=== PATIENT | male | born 1945 | race Caucasian/White ===

== ENCOUNTER → 2017-10-16 | Outpatient (CLI) | payer OTHER ==
[~2017-10-16] MED LIST: ARICEPT 5 MG TAB5 MG PO; ASPIR 8181 MG PO; ASPIRIN81 M2 PO; ATORVASTATIN CA40 MG PO; AVAPRO 150 MG150 M1 PO; B-12500 MCG PO; CARAFATE1 GM PO; COREG3.125 MG PO; IBUPROFEN 200200 M1 PO; KEPPRA 500 MG500 M1 PO; NORCO 7.5-3251 EACH PO; TRAMADOL 50 MG50 MG PO
--- NOTE | 2017-10-17 08:24 | PAINCON ---
[facility] [address] [place] [address] PAIN MANAGEMENT CONSULTATION Name: VAMSI RIVAS Room: [facility] SUNITA Mohr#: [id number] Admission: 10/16/17 Attend Phys: Osei Vargas Discharge: Date of : 43 Report #: [id number] THIS REPORT FOR: //name// CC: Damien Bell DATE OF SERVICE: 10/16/2017 The patient is a 72-year-old gentleman, prior seen in pain clinic just shy of a year ago in 11/2016, given epidural injection with overall improvement of baseline pain. Returns to pain clinic today, we had a prolonged visit, greater than 30 minutes were spent reviewing interval history, discussing therapeutic issues and concerns. The patient notes the prior epidural injection in November had been quite helpful. He was somewhat lost to follow up. Pain began to recur this past August. Unfortunately, there was confusion at patient's referring physician office, they thought that I was out of network. The patient would have preferred to come to me, he was referred to [facility]. Saw Dr. Balbri Pan, had an epidural injection early August, which he felt afforded really no ongoing relief. They were left frustrated with that encounter. He presents to the pain clinic today with ongoing pain he rates at 8 on VAS. Notes pain is in the low back, radiating to the bilateral legs. Really does not have radicular component of pain at this time. Denies myelopathic symptoms, no bowel or bladder continence changes. Notes pain is exacerbated with standing, walking and weightbearing as well as any axial loading. PHYSICAL EXAMINATION: Shows a 72-year-old gentleman appearing somewhat younger than stated age, 6 feet 3 inches, 244 pounds, BMI is 30 kilograms per meter squared. Blood pressure 146/77, pulse 74, respirations 16. Alert and oriented to person, place and time, judged to be a reasonable historian, moderately hard of hearing, but he wears bilateral hearing aids. Rises from the chair easily. Has diffuse tenderness across the low back. Gait is tandem at this time. Lower extremity strength is generally preserved. Very tender over the lumbar facets bilaterally, pain is exacerbated with rotation and side bending. Cristopher test is negative. We reviewed MRI from 11/27/2016. 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 More recent MRI from 08/21/2017, again notes multilevel [place] [address] PAIN MANAGEMENT CONSULTATION Name: HARSHMARIELLEVAMSI A Room: [facility]#: [id number] Admission: 10/16/17 Attend Phys: Osei Vargas Discharge: Date of : 43 Report #: [id number] lumbar spine without thecal sac or nerve root compression. No high grade spinal stenosis or neural foraminal stenosis noted. ASSESSMENT: Symptomatic lumbar spondylosis by clinical exam and history, a prior history of lumbar radicular pain, which he was treated for approximately a year ago. RECOMMENDATION: Given primarily L4-L5 and L5-S1 facet mediated pain by clinical exam and history correlated with provocative testing and MRI findings, we will seek authorization for bilateral L4-L5 and L5-S1 facet joint injection under fluoroscopy. Continue ibuprofen OTC. I have taken the liberty of writing for hydrocodone 7.5/325 one tablet 2-3 times a day, limit 75 tablets. The patient was discharged in good and stable condition after prolonged visit, will seek authorization for bilateral L4-L5 and L5-S1 facet joint injections under fluoroscopy at earliest possible date. Thank you for allowing me to participate in the patient's care. I will keep you abreast of his progress. <ELECTRONICALLY SIGNED> By: Ozzy Bell DO 10/17/17 0824 1451 1945Ozzy Bell DO /nt
== END ==
LOC: M.PC 01:24
DX: M54.16 Radiculopathy, lumbar region (principal)

== ENCOUNTER → 2017-10-23 | Outpatient (CLI) | payer OTHER ==
--- NOTE | 2017-10-28 07:21 | PAINCON ---
[address] [address] PAIN MANAGEMENT CONSULTATION Name: VAMSI RIVAS Room: [facility] Fani#: [id number] Admission: 10/23/17 Attend Phys: Osei Vargas Discharge: Date of : 43 Report #: [id number] THIS REPORT FOR: //name// CC: Damien Bell The patient is a 72-year-old gentleman, prior seen in the pain clinic on 10/16/2017, diagnosed with symptomatic lumbar spondylosis. We sought authorization for bilateral L4-L5 and L5-S1 facet joint injections. The patient returns to the pain clinic today for said procedure. He notes pain continues to be problematic, rating his pain a 5 on a VAS. Physical exam is otherwise unchanged. ASSESSMENT: Symptomatic lumbar spondylosis by clinical exam and history. PROCEDURE: Bilateral L4-L5 and L5-S1 facet joint injections under fluoroscopy. PROCEDURE NOTE: After written informed consent was obtained, the patient was taken to the fluoroscopy suite and placed in prone position. After sterile prep and drape, skin wheal was raised. A 22-gauge stylet needle was placed to contact the posterior aspect of the left L4-L5 and L5-S1 facet joints. AP and lateral projections showed good needle placement. Attention was then directed at the right side, again two 22-gauge stylet needles placed to contact the posterior aspect of the right L4-L5 and L5-S1 facet joints. Again, AP and lateral projections showed good needle placement. A 20 mg triamcinolone plus 1 mL of 0.5% preservative-free bupivacaine was injected at all 4 needles. All 4 needles were then removed. The area was cleansed and Band-Aids applied. The patient monitored for an appropriate period of time, told to monitor pain score over the next several hours. Follow up in 4 weeks for reevaluation, consideration for a medial branch dorsal rami diagnostic blocks and consideration of RFL if indicated. Fluoroscopy time was under 20 seconds. Discharged in good and stable condition. <ELECTRONICALLY SIGNED> By: Ozzy Bell DO 10/28/17 0721 1447 2229Ozzy Bell DO /nt
== END | disposition home or self-care (01) ==
LOC: M.PC 01:40
DX: M47.816 Spondylosis without myelopathy or radiculopathy, lumbar region (principal)

== ENCOUNTER → 2017-11-20 | Outpatient (CLI) | payer OTHER ==
--- NOTE | 2017-11-21 10:21 | PAINCON ---
[address] [address] PAIN MANAGEMENT CONSULTATION Name: VAMSI RIVAS Room: [facility] Fani#: [id number] Admission: 11/20/17 Attend Phys: Osei Vargas Discharge: Date of : 43 Report #: [id number] THIS REPORT FOR: //name// CC: Damien Bell DATE OF SERVICE: 11/20/2017 The patient is a 72-year-old gentleman, prior seen in the pain clinic 10/23/2017, diagnosed with symptomatic lumbar spondylosis and lumbosacral spondylosis without myelopathy or radiculopathy (M47.816, M47.817). The patient was given bilateral L4-L5, L5-S1 facet joint injections at last visit. The patient noted excellent, greater than 60% relief for several days with pain recurred to baseline. The patient presents to pain clinic today noting pain as a 3-4 on a VAS, gets up to 7 with activity. PHYSICAL EXAMINATION: Otherwise shows alert, oriented 72-year-old gentleman, 6 feet 3 inches. BMI is approximately 24 kilograms per meter squared. Vital signs are stable. Rises from chair using the armrest. Gait is antalgic. Lower extremity strength is preserved, but ongoing pain in the bilateral low back exacerbated with side bending and rotation. I reviewed the patient's diagnostic findings including the MRI from 08/21/2017 noting multilevel lumbar spondylosis without significant nerve root compression. ASSESSMENT: 1. Symptomatic lumbar spondylosis without myelopathy or radiculopathy. 2. Lumbosacral spondylosis without myelopathy or radiculopathy. RECOMMENDATIONS: With good relief, yet transient following bilateral facet joint injections at L4-L5 and L5-S1, we will seek authorization for medial branch dorsal rami diagnostic blocks innervating these joints (L3, L4 and L5 bilateral medial branch dorsal rami). If this affords transient relief, we will plan on moving forward with radiofrequency neurolysis. Discharged in good and stable condition. <ELECTRONICALLY SIGNED> By: Ozzy Bell DO 11/21/17 1021 1335 1843Ozzy Bell DO /nt
== END ==
LOC: M.PC 03:39
DX: M47.817 Spondylosis without myelopathy or radiculopathy, lumbosacral region (principal)

== ENCOUNTER → 2017-11-27 | Outpatient (CLI) | payer OTHER ==
--- NOTE | 2017-12-04 07:59 | PAINCON ---
[address] [address] PAIN MANAGEMENT CONSULTATION Name: VAMSI RIVAS Room: [facility] SUNITA Mohr#: [id number] Admission: 11/27/17 Attend Phys: Osei Vargas Discharge: Date of : 43 Report #: [id number] THIS REPORT FOR: //name// CC: Damien Bell The patient is a very pleasant 72-year-old gentleman being treated for symptomatic lumbar spondylosis without myelopathy or radiculopathy (M47.816, M47.817). He had lumbar facet joint injections, bilateral on 10/23/2017 in L4-L5 and L5-S1 with excellent yet transient improvement of pain. He had near 100% relief for the duration of the local anesthetic. He presents to the pain clinic today for medial branch dorsal rami diagnostic block. If he gets good relief with this, we will plan on moving forward with radiofrequency neurolysis. We will do bilateral blocks today; however, the patient understands and will move forward with RFL, only one side at a time. He tells me his left side seems to be the worst. ASSESSMENT: Symptomatic lumbar spondylosis without myelopathy or radiculopathy. PROCEDURE NOTE: After written informed consent was obtained, the patient was taken to the fluoroscopy suite, placed in prone position. After sterile prep and drape, skin wheal was raised. A 22-gauge stylet needle was placed to contact the left sacral alar notch, the left L5 superior articular process and the left L4 superior articular process. AP and lateral projections showed good needle placement adjacent to the L3, L4 and L5 medial branch dorsal rami. A 1 mL of 50:50 mix of 0.5% preservative-free bupivacaine plus 1.5% preservative-free Xylocaine was injected at each site. All 3 needles removed. Apple was redirected to the contralateral, i.e., right side. Procedure was repeated. All 6 needles removed. The area was cleansed, Band-Aids applied. Fluoroscopy time was 24 seconds. The patient monitored for an appropriate period of time in the recovery room, noted to have dramatic improvement of baseline pain, in fact, noted pain had decreased 90% (from a 01/30 to /). We will plan on moving forward with RFL at next visit. Discharged in good and stable condition. <ELECTRONICALLY SIGNED> By: Ozzy Bell DO 12/04/17 0759 1339 2040Ozzy Bell DO /nt
== END | disposition home or self-care (01) ==
LOC: M.PC 04:56
DX: M47.816 Spondylosis without myelopathy or radiculopathy, lumbar region (principal); G89.29 Other chronic pain; Z79.82 Long term (current) use of aspirin; Z79.899 Other long term (current) drug therapy

== ENCOUNTER → 2017-12-04 | Outpatient (CLI) | payer OTHER ==
--- NOTE | 2017-12-05 09:41 | PAINCON ---
[address] [address] PAIN MANAGEMENT CONSULTATION Name: VAMSI RIVAS [id number] Admission: 12/04/17 Attend Phys: Osei Vargas Discharge: Date of : 43 Report #: [id number] THIS REPORT FOR: //name// CC: Damien Bell The patient is a 72-year-old gentleman, prior seen in the pain clinic on 11/27/2017. We did medial branch dorsal rami diagnostic blocks at L3, L4 and L5. The patient notes that he had good relief, yet transient. He presents to pain clinic today for radiofrequency neurolysis. He thinks the left side may be worse. We have elected to start on this side today. Today, he also tells me he has had ongoing pain in bilateral knees. Notes, Orthopedics have told him that he needs total knee arthroplasties. He is loathe to move forward with surgery unless he is completely unable to ambulate. PHYSICAL EXAMINATION: Does show pleasant 72-year-old gentleman, BMI is 29.9 kilograms per meter squared. Blood pressure and pulse are wnl, respirations 16. Diffuse tenderness across the low back. Pain is exacerbated with rotating and sidebending. Modestly antalgic gait. No ballottable edema in the knees. The ligaments are intact. He does have subjective ongoing pain. ASSESSMENT: 1. Symptomatic degenerative joint disease, bilateral knees. 2. Lumbar and lumbosacral spondylosis without myelopathy or radiculopathy (M47.816, M47.817). RECOMMENDATIONS: 1. We will get x-rays of bilateral knees. We talked briefly about moving forward with Synvisc injection (hyaline G-F 20), if ongoing pain continues and he has diagnosable DJD. With no ballottable edema, I do think it is prudent to move forward with steroid injection in the knee. 2. Move forward with radiofrequency neurolysis left side L3, L4 and L5. Follow up in 2 weeks for consideration for contralateral RFL. PROCEDURE NOTE: After written informed consent was obtained, the patient was taken to the fluoroscopy suite and placed in the prone position. After sterile prep and drape, skin wheal was raised and three 10 mm RFK needles were placed to contact the left sacral alar notch, second needle was placed in the superior aspect of the left L5 superior articular process adjacent to the L4 medial branch dorsal rami, third needle was placed in the superior aspect of the L4 superior articular process adjacent to the L3 medial branch dorsal rami. AP and lateral projections showed good needle placements. Initial impedance, sensory and motor testing was accomplished. Numbers are on the chart. Each needle was then heated to 80 degrees centigrade for 90 seconds. A 30 mg of triamcinolone plus 1 mL of 0.5% preservative-free bupivacaine was injected at all 3 sites. Fluoroscopy time was under 30 seconds. All needles removed[place] [address] PAIN MANAGEMENT CONSULTATION Name: VAMSI RIVAS Room: [facility] Mohr#: [id number] Admission: 12/04/17 Attend Phys: Osei Vargas Discharge: Date of : 43 Report #: [id number] cleansed. Band-Aids were applied. The patient was allowed to ambulate to recovery room, monitored for an appropriate period of time, and discharged in good and stable condition. <ELECTRONICALLY SIGNED> By: Ozzy Bell DO 12/05/17 0941 1421 2033Ozzy Bell DO /nt
== END | disposition home or self-care (01) ==
LOC: M.RAD 01:49 → M.PC 01:49
DX: M47.816 Spondylosis without myelopathy or radiculopathy, lumbar region (principal); M47.817 Spondylosis without myelopathy or radiculopathy, lumbosacral region; M17.0 Bilateral primary osteoarthritis of knee; Z79.82 Long term (current) use of aspirin; Z79.899 Other long term (current) drug therapy

== ENCOUNTER → 2017-12-25 | Outpatient (CLI) | payer OTHER ==
--- NOTE | 2017-12-30 08:02 | PAINCON ---
[address] [address] PAIN MANAGEMENT CONSULTATION Name: VAMSI RIVAS Room: [facility] Fani#: [id number] Admission: 12/25/17 Attend Phys: Osei Vargas Discharge: Date of : 43 Report #: [id number] THIS REPORT FOR: //name// CC: Damien Bell DATE OF SERVICE: 12/25/2017 The patient is a 72-year-old gentleman who has been treated for axial back pain, lumbar and lumbosacral spondylosis, has DJD bilateral knees. We did RFL left L3, L4 and L5 on 12/04/2017, had some efficacy with this, but at that time he was complaining of ongoing bilateral knee pain. I ordered x-rays of bilateral knees, left and right knees show severe patellofemoral degenerative joint disease. We discussed Synvisc/hylan G-F 20 injections for cartilage supplementation. The patient wished to proceed. He notes the left knee was incrementally worse than the right. He has prior had right knee surgery. He wishes to proceed with a series of Synvisc injections, left knee. ASSESSMENT: Symptomatic degenerative joint disease, osteoarthritis, bilateral knees, left greater than right. PROCEDURE: Left knee Synvisc injection under fluoroscopy. DESCRIPTION OF PROCEDURE: After informed consent was obtained including risk of infection, the patient agreed. He was taken to the fluoroscopy suite and placed in supine position with a bolster on the left knee. Wide surgical prep and ape was accomplished. Skin with Xylocaine was raised from a superior medial approach. A 20-gauge Angiocath was inserted in the inferior lateral trajectory under the patella. Fluoroscopy showed needle tip in good position under the patella into the joint space proper. The needle was removed and 2 mL of Synvisc was injected through the Angiocath. Angiocath was removed. The area was cleansed, Band-Aids applied. The patient was told to keep the area clean and dry. Ice as needed for pain. Follow up in 1 week for Synvisc #2. <ELECTRONICALLY SIGNED> By: Ozzy Bell DO 12/30/17 0802 1409 1718Ozzy Bell DO /nt
== END | disposition home or self-care (01) ==
LOC: M.PC 01:24
DX: M17.0 Bilateral primary osteoarthritis of knee (principal); Z79.82 Long term (current) use of aspirin; Z79.899 Other long term (current) drug therapy; Z98.890 Other specified postprocedural states

== ENCOUNTER 2019-04-21 06:52 | Inpatient (IN) | payer OTHER ==
[2019-04-09 09:18] LABS: HEMATOCRIT 40.4 % (42.0-52.0); HEMOGLOBIN 14.1 gm/dL (14.0-18.0); MCH 29.4 pg (26.0-34.0); MCHC 34.9 g/dL (28.0-37.0); MCV 84.2 fL (80.0-100.0); MPV 7.8 fl. (7.2-11.1); RBC 4.8 mil/uL (4.50-6.00); RDW-CV 14.6 % (10.5-14.5); WBC 4.1 thou/uL (4.0-11.0)
[2019-04-09 09:22] LABS: URINE BILIRUBIN NEGATIVE (Negative); URINE BLOOD 1+ (Negative); URINE CLARITY CLEAR; URINE COLOR YELLOW; URINE GLUCOSE-RANDOM NEGATIVE (Negative); URINE KETONES NEGATIVE (Negative); URINE LEUKOCYTES-REFLEX NEGATIVE (Negative); URINE NITRITE-REFLEX NEGATIVE (Negative); URINE PROTEIN TRACE (Negative); URINE SPECIFIC GRAVITY >= 1.030 (1.005-1.030)
[2019-04-09 09:31] LABS: BACTERIA-REFLEX 1-9 Few /HPF (None Seen); CASTS None Seen /LPF (None Seen); CRYSTALS None Seen /LPF (None Seen); MUCUS >6 Heavy strn/LPF (None Seen); SQUAMOUS 4-10 Moderate /LPF (0-3); URINE RBC 3-10 Few /HPF (0-2); URINE WBC-REFLEX 0-5 Rare /HPF (0-5)
[2019-04-09 09:32] LABS: ALBUMIN 3.2 g/dL (3.4-5.0); CALCIUM 9.1 mg/dL (8.5-10.1); CREATININE 0.9 mg/dL (0.6-1.3); TOTAL BILIRUBIN 0.9 mg/dL (<0.1-1.0); TOTAL PROTEIN 7.1 g/dL (6.4-8.2)
[2019-04-09 09:43] LABS: PROTIME 10.6 Seconds (9.20-11.50)
--- NOTE | 2019-04-09 16:32 | EKG ---
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 04/09/19 1632 0935 0935 Axel Sosa MD, FAC /EPI
[~2019-04-21] VITALS: Ht 190.5 cm; Wt 109.8 kg
--- NOTE | ~2019-04-21 | OP ---
[facility] [address] [place] [address] OPERATIVE REPORT Name: VAMSI RIVAS Room: [address] IN .R.#: [id number] Admission: 04/21/19 Attend Phys: Osei Jacome Discharge: Date of : 43 Report #: [id number] THIS REPORT FOR: //name// CC: Damien Arreola DATE OF SERVICE: 04/21/2019 PREOPERATIVE DIAGNOSIS: Right knee osteoarthritis. POSTOPERATIVE DIAGNOSIS: Right knee osteoarthritis. PROCEDURE: Right total knee arthroplasty. SURGEON: Dariel Spencer II, DO. STAFF RESEARCH ASSOCIATE: MARIAJOSE Shields. ANESTHESIA: General endotracheal. ESTIMATED BLOOD LOSS: 50 mL. ANTIBIOTICS: Ancef preoperatively. DRAINS: Medium Hemovac. COMPLICATIONS: None. CONDITION: The patient was stable to recovery room. IMPLANTS: Listed in the operative record and progress note. BRIEF HISTORY: The patient was seen in the preoperative area. Preoperative H and P was performed. Site was marked. Questions were answered. Risks and benefits were discussed with the patient in detail about surgery. The patient wished to proceed assuming all risks. DESCRIPTION OF PROCEDURE: The patient was taken to the operative suite and placed supine on the operative table, given appropriate anesthesia. The patient had a well-padded tourniquet applied to the upper thigh, which was inflated to 300 mmHg after gravity exsanguination. The operative knee was sterilely prepped and draped. Surgery began by midline incision. This was carried down to the subcutaneous tissues. A medial parapatellar arthrotomy was performed and carried down to bone. The patella was then everted and excess soft tissues removed from around the femur. Femoral cutting block was then applied, checked [facility] [address] [place] [address] OPERATIVE REPORT Name: VAMSI RIVAS Room: [address] [place] [facility].#: [id number] Admission: 04/21/19 Attend Phys: Osei Jacome Discharge: Date of : 41 Report #: [id number] with a drop alex for rotational alignment, pinned in appropriate position and appropriate cuts were made. A 4-in-1 cutting block was then applied, checked for rotational alignment, pinned in appropriate position and appropriate cuts were made. The tibia was then exposed. Excess meniscus was removed. Retractor was placed on the collateral ligaments. The tibial guide block was then applied in appropriate position, checked with a drop alex for rotational alignment and slope and appropriate cut was made. Tibial bone was removed. The tibial base plate was then applied, checked for rotational alignment with the drop alex, pinned in appropriate position. Femur was then applied and box cut was reamed. This was then trialed with appropriate spacer, which showed excellent fit and fill with excellent stability of knee throughout all range of motion. Patella was then reamed in appropriate fashion and sized to appropriate size. Three peg holes were drilled, it was then trialed and showed excellent flexion, extension, excellent tracking of patella within the groove. These trials were removed. The tibia was punched in appropriate fashion. Bone ends were cleansed with Pulsavac irrigation and cement was mixed and applied to final implants. These were malleted into position and held the knee in extension and compressed to allow the cement to cure. After it cured, excess was removed utilizing a [place] and osteotome. Wound was then copiously irrigated and then final spacer was then malleted into position. The tourniquet was deflated. Hemostasis was obtained with electrocautery. Pain cocktail was injected. PRP gel was sprayed throughout internal aspects of the knee. Medium Hemovac drain was applied. The capsule was closed with #2 FiberWire and #1 Vicryl in [id number] fashion. Skin was closed with 2-0 Vicryl and running 3-0 Monocryl. Dermabond and sterile dressing applied. Crow wrap and PolarCare applied. The patient transported to recovery room in stable condition. Counts were correct throughout the procedure. By: [id number] Spencer II, DO /nt
[~2019-04-21 06:52] MED LIST changes: +ARICEPT10 M1 PO; +CALAN80 MG PO; +CRESTOR40 MG PO; +IBUPROFEN 600600 M1 PO; +PROTONIX40 M1 PO; +ULTRAM 50MG TAB50 MG PO
[2019-04-21 17:08] VITALS: BP 148/55
--- NOTE | 2019-04-21 18:33 | NUR ---
PT ARRIVED FROM PACU AT 1543. VITALS STABLE. DENIED PAIN MEDS. DENIED NAUSEA/VOMITING. DRESSING C/D/I. WILMER WRAP, TEDs, SCDs, HEMOVAC, POLAR PACK IN PLACE. IV PATENT. ON 3LO2 WITH CAPNO. FALL PRECAUITONS IN PLACE. CALL LIGHT WITHIN REACH. WILL CONTINUE TO MONITOR.
[2019-04-21 19:45] VITALS: BP 155/75
[2019-04-22] VITALS: BP 139/66
[2019-04-22 04:00] VITALS: BP 134/64
[2019-04-22 04:14] LABS: HEMOGLOBIN 12.6 gm/dL (14.0-18.0)
--- NOTE | 2019-04-22 05:56 | NUR ---
PATIENT HAS BEEN ALERT AND ORIENTED X 4 THROUGHOUT THE SHIFT AND RESTING QUIETLY ON HOURLY ROUNDS AFTER INITIAL START OF SHIFT NAUSEA AND INABILITY TO VOID. ZOFRAN HAD BEEN PROVIDED JUST PRIOR TO SHIFT CHANGE. NO EMESIS. MEDICATION EFFECTIVE PRIOR TO 2029. FIRST ATTEMPT TO VOID IN THE BED WITH URINAL UNSUCCESSFUL. BLADDER SCAN SHOWING 500 ML. STOOD AT BEDSIDE WITH 2 ASSIST, WALKER AND GAIT BELT TO VOID 100 ML. ABLE TO VOID WITH URINAL SHORTLY THERAFTER 450 ML. FURTHER VOID LATER IN THE SHIFT FOR ADEQUATE URINE OUTPUT. IVF'S AND ANTIBIOTICS PER ORDER. DRESSING CLEAN AND DRY RIGHT KNEE WITH LILIA HOSE LLE, SCD'S BILAT AND POLARCARE RLE. HEMOVAC PRESENT WITH SANGUINEOUS DRAINAGE. SEE I&O'S. CPM INITIALIZED HS TO GOOD TOLERANCE. MEDICATED X 2 THIS SHIFT FOR MINAMAL PAIN. VITAL SIGNS STABLE ON O2 AND CONTINUOUS CAPNOGRAPHY. CONTINUE TO MONITOR.
[2019-04-22 07:40] VITALS: BP 125/51
--- NOTE | 2019-04-22 11:59 | NUR ---
INITIAL ASSESSMENT: Pt evaluated for d/c planning needs. Reviewed chart and spoke with nurse and pt. Pt is alert and oriented. Pt lives in house with spouse and was independent with ADL's prior to admission to the hospital. Pt has cane at home. Pt plans on returning home on d/c from hospital. Pt is agreeable with home health and wants to use [facility]. Called [facility] and faxed referral. Will await return call to see if they are able to accept. Pt also needs walker for home use. Contacted [facility] and they are in network with insurance and will deliver to pt prior to d/c. Will remain available to assist as needed.
[2019-04-22 16:00] VITALS: BP 132/48
[2019-04-22] MEDS ORDERED: COLACE100 MG PO (16:50)
[2019-04-22] MEDS ORDERED: METAMUCIL PACK3.4 GM PO (16:52)
[2019-04-22] MEDS ORDERED: XARELTO10 MG PO (16:53)
[2019-04-22] MEDS ORDERED: NORCO 5-325 TA1 EAC1 PO (16:54)
[2019-04-22 16:56] VITALS: BP 125/51
--- NOTE | 2019-04-22 20:07 | NUR ---
ASSUMED CARE OF PATIENT AT APPROX 0730. ALERT AND ORIENTED X4. ASSESSMENT COMPLETED AND CHARTED. VSS ON ROOM AIR. FLUIDS AND ANTIBIOTICS INFUSED THEN SALINE LOCKED. PAIN MANAGED WITH HYDROCODONE. PATIENT UP WITH GAIT BELT AND WALKER. WORKED WELL WITH THERAPIES AND PROGRESSED TOWARD GOALS. JUDITH DISCHARGED AT 1800 WITH ALL PERSONAL BELONGINGS, PRESCRIPTION AND DISCHARGE INFORMATION.
== END 2019-04-22 18:00 | disposition home health service (06) | DRG 470 ==
LOC: M.PRE 06:52 → M.ORTHSURG 10:05 → M.TBA 10:05 → M.PRE 12:26 → M.ORTHSURG 15:48 → M.PRE 16:31 → M.ORTHSURG 04-22 18:00
PROVIDERS: Orthopaedic Surgery; ADMIT Internal Medicine
PROC: 0SRC0J9 Replacement of Right Knee Joint with Synthetic Substitute, Cemented, Open Approach (ICD-10-PCS; principal; 2019-04-21)
DX: M17.11 Unilateral primary osteoarthritis, right knee (principal); E78.00 Pure hypercholesterolemia, unspecified; I10 Essential (primary) hypertension; R56.9 Unspecified convulsions; F03.90 Unspecified dementia, unspecified severity, without behavioral disturbance, psychotic disturbance, mood disturbance, and anxiety; Z87.81 Personal history of (healed) traumatic fracture; Z95.5 Presence of coronary angioplasty implant and graft; Z90.49 Acquired absence of other specified parts of digestive tract; Z79.899 Other long term (current) drug therapy

== ENCOUNTER 2019-06-28 10:51 | Emergency (ER) | payer OTHER ==
[~2019-06-28] VITALS: Ht 190.5 cm; Wt 99.3 kg
[~2019-06-28 10:51] MED LIST changes: +COLACE100 MG PO; +METAMUCIL PACK3.4 GM PO; +NORCO 5-325 TA1 EAC1 PO; +XARELTO10 MG PO
[2019-06-28 12:15] LABS: ABSOLUTE LYMPHOCYTES 0.7 thou/uL (0.8-5.3); ABSOLUTE MONOCYTES 0.8 thou/uL (0.0-1.2); ABSOLUTE NEUTROPHILS 4.8 thou/uL (1.6-8.1); BASOPHILS 0.7 %; HEMATOCRIT 35.6 % (42.0-52.0); HEMOGLOBIN 12.2 gm/dL (14.0-18.0); LYMPHOCYTES 11.3 %; MCHC 34.1 g/dL (28.0-37.0); MCV 82.2 fL (80.0-100.0); MONOCYTES 12.3 %; MPV 7.9 fl. (7.2-11.1); NUCLEATED RBCS 0 /100WBC; PLATELET COUNT* 218 thou/uL (150-400); POLYS 75.7 %; RBC 4.34 mil/uL (4.50-6.00); RDW-CV 14.2 % (10.5-14.5); WBC 6.4 thou/uL (4.0-11.0)
[2019-06-28 12:22] LABS: URINE BILIRUBIN NEGATIVE (Negative); URINE BLOOD 3+ (Negative); URINE CLARITY CLEAR; URINE COLOR YELLOW; URINE GLUCOSE-RANDOM 1+ (Negative); URINE KETONES NEGATIVE (Negative); URINE PROTEIN 2+ (Negative); URINE SPECIFIC GRAVITY 1.025 (1.005-1.030)
[2019-06-28 12:24] LABS: URINE LEUKOCYTES-REFLEX 2+ (Negative); URINE NITRITE-REFLEX POSITIVE (Negative)
[2019-06-28 12:26] LABS: ALBUMIN 2.3 g/dL (3.4-5.0); CALCIUM 8.6 mg/dL (8.5-10.1); CREATININE 0.9 mg/dL (0.6-1.3); POTASSIUM 3.4 mmol/L (3.5-5.1); TOTAL BILIRUBIN 0.8 mg/dL (<0.1-1.0); TOTAL PROTEIN 6.4 g/dL (6.4-8.2)
[2019-06-28 12:31] LABS: CASTS None Seen /LPF (None Seen); CRYSTALS None Seen /LPF (None Seen); MUCUS 0-3 Light strn/LPF (None Seen); SQUAMOUS 0-3 Few /LPF (0-3); URINE RBC 3-10 Few /HPF (0-2); URINE WBC-REFLEX >25 Many /HPF (0-5)
[2019-06-28 14:09] VITALS: BP 159/72
== END 2019-06-28 14:10 | disposition home or self-care (01) ==
LOC: M.ERS 10:51
PROVIDERS: Nurse Practitioner Family
DX: N39.0 Urinary tract infection, site not specified (principal); R73.9 Hyperglycemia, unspecified; E78.00 Pure hypercholesterolemia, unspecified; F03.90 Unspecified dementia, unspecified severity, without behavioral disturbance, psychotic disturbance, mood disturbance, and anxiety; I10 Essential (primary) hypertension; Z90.49 Acquired absence of other specified parts of digestive tract; Z95.2 Presence of prosthetic heart valve; Z87.440 Personal history of urinary (tract) infections

== ENCOUNTER 2019-07-03 16:22 | Inpatient (IN) | payer OTHER ==
[~2019-07-03] VITALS: Ht 190.5 cm; Wt 99.3 kg
[2019-07-03 16:31] VITALS: BP 174/63
[2019-07-03 16:45] LABS: URINE BILIRUBIN NEGATIVE (Negative); URINE BLOOD 3+ (Negative); URINE COLOR YELLOW; URINE GLUCOSE-RANDOM NEGATIVE (Negative); URINE KETONES NEGATIVE (Negative); URINE NITRITE-REFLEX NEGATIVE (Negative); URINE PROTEIN 2+ (Negative); URINE SPECIFIC GRAVITY >= 1.030 (1.005-1.030); URINE UROBILINOGEN 0.2 E.U./dl (0.2-1.0)
[2019-07-03 16:46] LABS: URINE LEUKOCYTES-REFLEX 2+ (Negative)
[2019-07-03 16:49] LABS: URINE CLARITY CLOUDY
[2019-07-03 17:02] LABS: SQUAMOUS NONE SEEN /LPF (0-3)
[2019-07-03 17:03] LABS: BACTERIA-REFLEX 1-9 Few /HPF (None Seen); CASTS None Seen /LPF (None Seen); CRYSTALS None Seen /LPF (None Seen); URINE RBC None Seen /HPF (0-2); URINE WBC-REFLEX >25 Many /HPF (0-5)
[2019-07-03 17:48] LABS: ABSOLUTE BASOPHILS 0.1 thou/uL (0.0-0.2); ABSOLUTE LYMPHOCYTES 1.2 thou/uL (0.8-5.3); ABSOLUTE MONOCYTES 0.5 thou/uL (0.0-1.2); ABSOLUTE NEUTROPHILS 4.7 thou/uL (1.6-8.1); HEMATOCRIT 36.7 % (42.0-52.0); HEMOGLOBIN 12.4 gm/dL (14.0-18.0); LYMPHOCYTES 18.6 %; MCH 27.7 pg (26.0-34.0); MCHC 33.8 g/dL (28.0-37.0); MCV 81.8 fL (80.0-100.0); MONOCYTES 7.8 %; NUCLEATED RBCS 0 /100WBC; PLATELET COUNT* 322 thou/uL (150-400); POLYS 72.6 %; RBC 4.48 mil/uL (4.50-6.00); RDW-CV 14.3 % (10.5-14.5); WBC 6.5 thou/uL (4.0-11.0)
[2019-07-03 17:57] LABS: CALCIUM 8.2 mg/dL (8.5-10.1); CREATININE 0.9 mg/dL (0.6-1.3); POTASSIUM 3.5 mmol/L (3.5-5.1)
[2019-07-03 18:02] LABS: ALBUMIN 2.5 g/dL (3.4-5.0); TOTAL BILIRUBIN 0.5 mg/dL (<0.1-1.0); TOTAL PROTEIN 7.1 g/dL (6.4-8.2)
[2019-07-03 20:19] VITALS: BP 146/70
[2019-07-03 20:39] VITALS: BP 152/70
--- NOTE | 2019-07-04 05:04 | NUR ---
PT ARRIVED WITH FAMILY AT 2019. ALERT AND ORIENTED. VSS. ADMISSION HX/ASSESSMENT COMPLETED. MED GIVEN ORDERED. PT DENIED PAIN. UP WITH STANDBY ASSIST. PVR 45ML AT 2200. IV FLUID RUNNING ORDERED. WILL CONTINUE TO MONITOR.
[2019-07-04 05:11] LABS: ABSOLUTE LYMPHOCYTES 0.9 thou/uL (0.8-5.3); ABSOLUTE MONOCYTES 0.4 thou/uL (0.0-1.2); ABSOLUTE NEUTROPHILS 3.4 thou/uL (1.6-8.1); HEMATOCRIT 36.8 % (42.0-52.0); HEMOGLOBIN 12.1 gm/dL (14.0-18.0); MCH 27.2 pg (26.0-34.0); MCV 82.4 fL (80.0-100.0); MONOCYTES 9.1 %; MPV 7.6 fl. (7.2-11.1); NUCLEATED RBCS 0 /100WBC; PLATELET COUNT* 315 thou/uL (150-400); POLYS 70.9 %; RBC 4.46 mil/uL (4.50-6.00); RDW-CV 14.1 % (10.5-14.5); WBC 4.7 thou/uL (4.0-11.0)
[2019-07-04 05:32] LABS: CREATININE 0.7 mg/dL (0.6-1.3); POTASSIUM 3.6 mmol/L (3.5-5.1)
--- NOTE | 2019-07-04 07:27 | NUR ---
PT PVR 270ML AT 0600 DR. CABAN NOTIFIED, ORDER RECEIVED. PT REFUSED ONETIME STRAIGHT CATH. WANTED TO VOID AGAIN, PVR 168ML AFTER.
[2019-07-04 08:25] VITALS: BP 150/79
[2019-07-04 16:33] VITALS: BP 131/63
--- NOTE | 2019-07-04 19:00 | NUR ---
PATIENT PLEASANT AND COOPERATIVE THRU SHIFT. COOPERATIVE W/ ASSESS AND CARES. IV FLUIDS INFUSING W/O DIFF, IV CATH SITE NOTED WNL. PATIENT DENIES PAIN THRU SHIFT. HRLY ROUNDS DONE. ~ERINRN
[2019-07-04 20:30] VITALS: BP 140/66
[2019-07-05 04:19] LABS: ABSOLUTE BASOPHILS 0.1 thou/uL (0.0-0.2); ABSOLUTE LYMPHOCYTES 1.5 thou/uL (0.8-5.3); ABSOLUTE MONOCYTES 0.6 thou/uL (0.0-1.2); ABSOLUTE NEUTROPHILS 4.3 thou/uL (1.6-8.1); BASOPHILS 1.1 %; EOSINOPHILS 0.1 %; HEMATOCRIT 33.5 % (42.0-52.0); HEMOGLOBIN 11.3 gm/dL (14.0-18.0); LYMPHOCYTES 22.5 %; MCH 27.6 pg (26.0-34.0); MCHC 33.8 g/dL (28.0-37.0); MCV 81.8 fL (80.0-100.0); MONOCYTES 9.2 %; MPV 8.8 fl. (7.2-11.1); NUCLEATED RBCS 0 /100WBC; PLATELET COUNT* 277 thou/uL (150-400); POLYS 67.1 %; RDW-CV 14.5 % (10.5-14.5); WBC 6.5 thou/uL (4.0-11.0)
[2019-07-05 04:55] LABS: ALBUMIN 2.2 g/dL (3.4-5.0); CALCIUM 8.9 mg/dL (8.5-10.1); CREATININE 0.7 mg/dL (0.6-1.3); POTASSIUM 3.7 mmol/L (3.5-5.1); TOTAL BILIRUBIN 0.3 mg/dL (<0.1-1.0); TOTAL PROTEIN 5.9 g/dL (6.4-8.2)
--- NOTE | 2019-07-05 05:09 | NUR ---
PT SLEPT ON AND OFF OVERNIGHT. AOX4 THIS SHIFT, HX OF DEMENTIA, USING CALL LITE APPROPRIATELY FOR SBA TO BR WITH IV THIS SHIFT. VOIDING WITHOUT DIFFICULTY PT STATES. RAC IVF INFUSING PER PUMP, ABX GIVEN ORDERED. DENIES PAIN. AM LABS DRAWN. UROLOGY AND GI CONSULTING. BED ALARM ON FOR SAFETY OVERNIGHT.
[2019-07-05 10:00] VITALS: BP 143/66
--- NOTE | 2019-07-05 14:13 | CON ---
[address] [address] CONSULTATION Name: VAMSI RIVAS Room: [address] IN ..#: [id number] Admission: 07/03/19 Attend Phys: John Barriga MD Discharge: Date of : 41 Report #: [id number] THIS REPORT FOR: //name// CC: [facility] John Freire MD DATE OF SERVICE: 07/04/2019 REASON FOR CONSULTATION: Recurrent UTI. HISTORY OF PRESENT ILLNESS: The patient is a 74-year-old male who underwent a right knee replacement several weeks ago. About 2-3 weeks after surgery, he started having dysuria. He was treated for UTI by Dr. Freire, his primary care doctor. Since that initial episode, he has had 3 episodes and was referred to Urology but just has not been seen yet. The patient reports he was seen a few days ago in the ER for similar complaints and the urine culture came back E. coli with multiple resistances. He cannot recall what antibiotic he was placed on. He presented again yesterday with similar symptoms and subjective fever and chills. He denies flank pain. He denies difficulty voiding and previously was not on any BPH treatment. He essentially failed outpatient management and so therefore is being admitted for a Urology evaluation and IV antibiotics. PAST MEDICAL HISTORY: Includes osteoarthritis, hypercholesterolemia, hypertension, seizures, dementia, cholecystectomy, ankle surgery, right foot fracture, coronary stent, and total knee replacement. MEDICATIONS: Reviewed and are per inpatient medical record. ALLERGIES: None. FAMILY HISTORY: Denies any history of prostate cancer. SOCIAL HISTORY: The patient was never a smoker and denies any alcohol use. He lives at home with his . REVIEW OF SYSTEMS: A 12-point review of systems is performed and is negative except as noted above in HPI. PHYSICAL EXAMINATION: VITAL SIGNS: Temperature is 36.7, pulse 89, respirations 17, blood pressure 152/70, and pulse ox 97% on room air. GENERAL: He is a well-developed and well-nourished white male, in no acute distress. He is alert and oriented and appears nontoxic. HEENT: Normocephalic and atraumatic. [place] [address] CONSULTATION Name: HARSHMARIELLEVAMSI A Room: [address]#: [id number] Admission: 07/03/19 Attend Phys: John Barriga MD Discharge: Date of : 41 Report #: [id number] HEART: Regular rate and rhythm. LUNGS: Clear without wheezing. ABDOMEN: Soft, nontender, and nondistended. GENITOURINARY: He has a normal circumcised phallus and normal meatus. Testes are descended bilaterally and nontender and normal to palpation. RECTAL: He has an enlarged prostate that is not boggy and not particularly tender. EXTREMITIES: Without clubbing, cyanosis, or edema. SKIN: Without lesions or rashes. LABORATORY DATA: White count on admission 6.5, hemoglobin 12.4, and platelets 322. BMP was normal with a BUN of 8 and creatinine of 0.9. Lactic acid was normal at 1.1. Urinalysis on admission showed protein, blood, and leukocyte esterase. Micro exam was positive for bacteria and white cells. Urine culture is pending as are blood cultures. Reviewed urine culture from 06/28/2019. This was E. coli which was multidrug resistant, specifically resistant to ceftriaxone which he is currently on per the hospitalist. It is sensitive to amikacin, Augmentin, cefepime, imipenem, ertapenem, meropenem, nitrofurantoin, Zosyn, Bactrim, and tigecycline. CT scan was reviewed. This was done with contrast yesterday. This reveals normal kidneys and ureters without hydronephrosis or stones. Bladder wall was read as thickened. BPH noted but no report of prostatic abscess. Reportedly, PVR initially was over 200 mL, but he was able to double void down to 160 mL. ASSESSMENT AND PLAN: 1. Recurrent urinary tract infection. 2. Benign prostatic hypertrophy with incomplete emptying. It is unclear whether he was just on the wrong antibiotic this whole time, as I am unaware of any prior cultures. I am not sure what he was most recently discharged on from the Emergency Room on 06/28/2019, as it is not clear from their note. Regardless, he should be changed to IV culture sensitive antibiotics. I have taken the liberty of stopping Rocephin and starting cefepime per his last culture sensitivities. Currently, he has been afebrile and no leukocytosis. He may need a longer course of culture sensitive antibiotics than he has previously been on, and we will await his current urine culture results before making a decision on that. I would recommend cystoscopy as an outpatient. Flomax has been started and I agree. His residual is elevated, but not terrible. We will check again to make sure there is no trend upwards, but hopefully can go without catheterization. The patient is encouraged to double void. <ELECTRONICALLY SIGNED> By: Irasema Bolton MD 07/05/19 1413 1431 [id number] mercy Ann
--- NOTE | 2019-07-05 18:32 | NUR ---
PATIENT AMBULATING WITH STAND BY ASSISTANCE THROUGHOUT SHIFT. FAMILY TOOK CANE HOME. PATIENT AWAKE IN BED. ALL SAFETY MEASURES MAINTAINED. PATIENT DENIES PAIN AND FURTHER NEEDS AT THIS TIME.
[2019-07-05 20:30] VITALS: BP 140/68
[2019-07-06 02:07] LABS: GLYCOHEMOGLOBIN (HGB A1C) 5.6 % (4.8-5.6)
[2019-07-06 04:00] VITALS: BP 144/74
[2019-07-06 05:01] LABS: ABSOLUTE LYMPHOCYTES 1.1 thou/uL (0.8-5.3); ABSOLUTE MONOCYTES 0.5 thou/uL (0.0-1.2); ABSOLUTE NEUTROPHILS 4.4 thou/uL (1.6-8.1); BASOPHILS 0.8 %; HEMATOCRIT 34.6 % (42.0-52.0); HEMOGLOBIN 11.7 gm/dL (14.0-18.0); LYMPHOCYTES 18.5 %; MCH 27.6 pg (26.0-34.0); MCHC 33.8 g/dL (28.0-37.0); MCV 81.6 fL (80.0-100.0); MONOCYTES 8.7 %; MPV 7.4 fl. (7.2-11.1); NUCLEATED RBCS 0 /100WBC; PLATELET COUNT* 299 thou/uL (150-400); RBC 4.24 mil/uL (4.50-6.00); RDW-CV 14.7 % (10.5-14.5); WBC 6.2 thou/uL (4.0-11.0)
[2019-07-06 05:30] LABS: CREATININE 0.7 mg/dL (0.6-1.3); POTASSIUM 3.6 mmol/L (3.5-5.1)
[2019-07-06 07:45] VITALS: BP 147/74
[2019-07-06 14:25] VITALS: BP 147/74
[2019-07-06 15:09] VITALS: BP 147/74
[2019-07-06] MEDS ORDERED: FLOMAX0.4 MG PO (15:14)
--- NOTE | 2019-07-06 15:19 | NUR ---
SW met with pt to discuss safe dc planning and the need for IV abx and HH RN. Pt present as well. Pt lives at home with and pt children are supportive as well. SW faxed referral and IV abx order to [facility] and received benefits of copay of $100 for rx and $91 for supplies. Pt and pt agreeable to the cost. Pt preference for [facility], [facility] faxed referral and orders and confirmed acceptance with intake of [facility].
[2019-07-06 15:28] VITALS: BP 147/74
[2019-07-06] MEDS ORDERED: INVANZ1 GM IVPB (15:29)
--- NOTE | 2019-07-06 16:17 | NUR ---
PATIENT AMBULATING WITH ASSITANCE THROUGHOUT SHIFT. ALL SAFETY MEASURES MAINTAINED. NO SIGNS OF DISTRESS OBSERVED. IV REMOVED. PATIENT DISCHARGING WITH MIDLINE. DISCHARGE PAPERWORK AND PRESCRIPTION GIVEN TO PATIENT. PATIENT DENIES PAIN, QUESTIONS, AND FURTHER NEEDS AT THIS TIME.
[2019-07-06 16:24] VITALS: BP 147/74
--- NOTE | 2019-07-07 10:15 | CON ---
[address] [address] CONSULTATION Name: VAMSI RIVAS Room: [address] IN M.R.#: [id number] Admission: 07/03/19 Attend Phys: John Barriga MD Discharge: 07/06/19 Date of : 41 Report #: [id number] THIS REPORT FOR: //name// CC: John Hunter MD DATE OF SERVICE: 07/05/2019 REFERRING PHYSICIAN: John Barriga MD REASON FOR CONSULTATION: Dysphagia and weight loss. IMPRESSION: 1. Weight loss, which appears to be multifactorial with the patient having undergone recent surgery, having recurrent urinary tract infections and having issues with his swallowing. 2. Chronic dysphagia, which is likely related to either early achalasia or hypertonic lower esophageal sphincter as demonstrated by previous esophageal motility study. 3. Recurrent urinary tract infections. 4. Status post recent total knee replacement with postoperative anemia. 5. Anemia, which is multifactorial. 6. Age over 50 with eventual need for colonoscopy. RECOMMENDATIONS: 1. 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 He has undergone previous EGDs and dilations in the past, which have been unrevealing; however, now the patient has changed GI physicians from our group and my partner, Dr. Wakefield to Dr. Hunter of [facility], they are wanting to stay with Dr. Hunter. In fact, the patient's states that the patient underwent recent studies by Dr. Hunter including an upper endoscopy and possibly motility study and there were some plans to potentially have the patient undergo Botox injection of his lower esophageal sphincter. I suspect this is the best option at this time. 2. While I agree with the need to have a colonoscopy, it needs to be done, it will be easier for him once he is able to swallow better and take a full bowel preparation. He will follow up with Dr. Hunter regarding the same. 3. I did reassure him and his family that I do not see anything ominous on CT scan of the abdomen and pelvis. I also did not see anything to suggest that there was any tumor at the level of the lower esophageal sphincter and since has been ongoing for the last 2-3 years and has only recently lost weight, which is multifactorial, I doubt that this is a par[place] [address] CONSULTATION Name: VAMSI RIVAS Room: [address]#: [id number] Admission: 07/03/19 Attend Phys: John Barriga MD Discharge: 07/06/19 Date of : 41 Report #: [id number] achalasia. 4. At the present time, since the patient does not have any emergent GI issues that require emergent care, plus the fact that he and his are decided to go to a different GI group, we will sign off at this time. HISTORY OF PRESENT ILLNESS: The patient is a very pleasant 74-year-old white male who was actually admitted to the hospital because of problems with recurrent urinary tract infections and is being evaluated by Urology regarding the same. He has also been on several rounds of antibiotics plus not been eating all that well and has lost about 25 pounds in the last few months. He has had problems with chronic dysphagia and has undergone endoscopic studies of his upper GI tract in the past by my partner, Dr. Wakefield, in 2017 and in 2018 and has undergone empiric dilation without improvement of the same. 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 I doubt this hiatal hernia is causing any of these issues. I suspect it out of frustration they decided to get different opinion and has recently seen Dr. Hunter who is in the process of evaluating and taking care of the patient. He does have problems with chronic, having to clear his throat, particularly when he lies down at night and does not know where all his mucus is coming from, but I suspect this is because his esophagus is not emptying. He denies any problem with his bowels or bowel frequency. He has never had any previous colonoscopy in the past. He has no known family history of any colon polyps or colon cancer. He denies any black stools, tarry stools or any blood in the stools. He is currently in the hospital now and getting treated for recurrent urinary tract infection. ALLERGIES: None. MEDICATIONS: Include Keppra, Crestor, Motrin, Aricept, Protonix and verapamil in hopes that his lower esophageal sphincter would relax. PAST MEDICAL AND SURGICAL HISTORY: Remarkable for hypertension, seizures, early dementia. He has had ankle surgery, right foot surgery. He has had stents placed in the past. He has had right total knee replacement earlier this year, he has had cholecystectomy as well. SOCIAL HISTORY: The patient does not smoke or drink. FAMILY HISTORY: Negative for colon cancer. PHYSICAL EXAMINATION: GENERAL: Pleasant 74-year-old gentleman who is awake and alert. [address] [address] CONSULTATION Name: VAMSI RIVAS Room: [address] IN M.R.#: [id number] Admission: 07/03/19 Attend Phys: John Barriga MD Discharge: 07/06/19 Date of : 41 Report #: [id number] CARDIOPULMONARY: Revealed a regular rate and rhythm. LUNGS: Clear. ABDOMEN: Soft and not tender. No rebound or guarding noted. LABORATORY DATA: From 07/03/2019 revealed a white count of 6.5, hemoglobin 12.4, platelet count 322,000. His sodium is 140, potassium 3.5, chloride 103, bicarbonate is 30, BUN is 8, creatinine 0.9. His total bilirubin is 0.5, alkaline phosphatase 99, AST 20, ALT 34. His albumin is only 2.5, total protein is 7.1. CT scan of the abdomen and pelvis was reviewed and revealed no intrinsic abnormalities within the liver. He has had previous cholecystectomy changes with bile duct being normal for size. His pancreas and spleen appeared normal as well as his adrenals. He has nothing to suggest any obstruction within his bladder or kidneys. There is no retroperitoneal or mesenteric root adenopathy. He does have a small hiatal hernia, small bowel is normal, appendix is not seen and his colon just revealed some stool in the colon that is suggestive for constipation, but nothing that is of concern. DISCUSSION: At the present time, the patient has had issues with chronic dysphagia and probably has some evidence for outlet obstruction at the level of GE junction. He is scheduled to see Dr. Hunter who plans on probably proceeding with barium swallow with isai to confirm that he does have evidence for the same. An Endoclip would also be an option, but I suspect that the patient is symptomatic enough that Botox injection would be his best option. I agree with this plan of care as well. Since he has opted to change groups, we will defer all of his care for his GI issues to the capable hands of Dr. Hunter who is certainly capable of taking care of him with regard to the same. <ELECTRONICALLY SIGNED> By: Suresh Broderick DO 07/07/19 1015 1037 1243Gsavana Broderick DO /nt
--- NOTE | 2019-08-09 15:03 | CON ---
[address] [address] CONSULTATION Name: VAMSI RIVAS Room: [address] IN .R.#: [id number] Admission: 07/03/19 Attend Phys: John Barriga MD Discharge: 07/06/19 Date of : 43 Report #: [id number] THIS REPORT FOR: //name// CC: John Quezada Tani DATE OF SERVICE: 07/05/2019 CONSULTATION: Infectious diseases. HISTORY OF PRESENT ILLNESS: Mr Rivas is a 74-year-old white male admitted to the hospital with urinary tract infection, failure to respond to oral outpatient therapy. The patient's family says that when the patient was here in March for a total knee replacement, he first developed urinary tract infection. He has been fighting this ever since the beginning of April. He has been on multiple oral antibiotic therapies. Most recently, he was in the ER on 06/28. He was not septic, but had pyuria and the urine did grow greater than 10 to fifth E. coli with multidrug resistance. It was resistant to Cipro, gentamicin and Rocephin, intermediately susceptible to Fortaz, and sensitive to cefepime, meropenem, Augmentin, Macrobid and trimethoprim sulfa. The patient was given oral antibiotic, unknown name after received Rocephin in the ER. In spite of this, the patient was doing worse. He has been in the hospital now on cefepime since 07/03 and feeling significantly better. Infectious Disease consultation has been requested to assist with evaluation and management of resistant urinary tract infection. PAST MEDICAL HISTORY: Significant for hypertension, hyperlipidemia, degenerative joint disease, chest pain, dementia, seizure, coronary artery disease. The patient did have one episode of hyperglycemia documented. PAST SURGICAL HISTORY: Includes the right knee replacement on 04/21, ankle surgery and cholecystectomy. SOCIAL HISTORY: The patient is . He lives with his . Does not use tobacco, alcohol, nor drugs. REVIEW OF SYSTEMS: The patient knows he was having frequency and dysuria. His thought his memory was worse and his dementia was worse. He says since starting the antibiotic here in the hospital, he is much improved. The patient is not aware of fevers, chills, or sweats. No head or neck complaints. Note is made of the 's concern that his dementia was exacerbated by the infection. The patient denies cough, chest pain, or shortness of breath. No angina, syncope, or palpitation. The patient denies GI symptoms. No nausea, vomiting, diarrhea, constipation or abdominal pain. No melena, nor hematochezia. The patient does have the dysuria and frequency, but not currently. Apparently, there has been some elevated residuals after voiding, [place] [address] CONSULTATION Name: VAMSI RIVAS Room: [address] IN [facility]#: [id number] Admission: 07/03/19 Attend Phys: John Barriga MD Discharge: 07/06/19 Date of : 43 Report #: [id number] medication. Extremities, no complaints. PHYSICAL EXAMINATION: GENERAL: The patient appears awake, alert, oriented, pleasant, not in any distress. VITAL SIGNS: Normal. The patient has been afebrile since coming to the hospital. SKIN: Shows no rash or lesions. ENT: Negative. MENTAL STATUS: The patient is mentally appropriate and cogent. HEART: Sounds normal. LUNGS: Clear. ABDOMEN: Belly thin, soft, not tender. Flanks are not tender. LABORATORY DATA: White count is 6.5, hemoglobin 11.3, platelet 277,000. The electrolytes, BUN and creatinine, glucose are normal. CT scan showed prostatic hypertrophy, but otherwise unremarkable. The urine culture showed less than 10 to fifth organisms and they were not further worked up. Urine culture from 06/28 in the ER, had the E. coli as noted above. 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 I will suggest we treat the resistant E. coli with meropenem. If the patient goes home, we can change this to ertapenem once a day [facility]. I recommend we continue the patient on intensive IV antibiotic therapy for 7 days because of his history. We could continue treating with the oral antibiotic. Among the antibiotics, which were active, I would think that Bactrim would probably be the most effective and best tolerated. I think we should do several weeks of antibiotic therapy. The patient will need to follow up with the urologist to make sure there are no anatomical causes for recurrent urinary tract infections. We need to make sure that he is able to adequately empty his bladder. The patient continues to have resistant of recurrent infections. He may benefit from prophylaxis with something like Mandelamine or hippurate. I appreciate the opportunity of input in the care of this pleasant gentleman. Dr. Khan will return tomorrow for additional followup. <ELECTRONICALLY SIGNED> By: Augusto Nelson MD 08/09/19 1503 1907 Anthony Nelson MD /nt
== END 2019-07-06 16:22 | disposition home health service (06) | DRG 690 ==
LOC: M.ERS 16:22 → M.3W 18:03 → M.TBA-ER 18:03 → M.3W 20:21
PROVIDERS: Internal Medicine Gastroenterology; Nurse Practitioner Family; ADMIT Internal Medicine
PROC: 05HY33Z Insertion of Infusion Device into Upper Vein, Percutaneous Approach (ICD-10-PCS; principal; 2019-07-06)
DX: N30.01 Acute cystitis with hematuria (principal); E44.1 Mild protein-calorie malnutrition; N40.1 Benign prostatic hyperplasia with lower urinary tract symptoms; R33.8 Other retention of urine; M19.90 Unspecified osteoarthritis, unspecified site; F03.90 Unspecified dementia, unspecified severity, without behavioral disturbance, psychotic disturbance, mood disturbance, and anxiety; B96.20 Unspecified Escherichia coli [E. coli] as the cause of diseases classified elsewhere; Z96.651 Presence of right artificial knee joint; I25.10 Atherosclerotic heart disease of native coronary artery without angina pectoris; R63.4 Abnormal weight loss; D64.9 Anemia, unspecified; E78.00 Pure hypercholesterolemia, unspecified; R13.10 Dysphagia, unspecified; I10 Essential (primary) hypertension; Z90.49 Acquired absence of other specified parts of digestive tract; Z68.27 Body mass index [BMI] 27.0-27.9, adult; Z95.5 Presence of coronary angioplasty implant and graft

== ENCOUNTER 2020-05-19 12:21 | Inpatient (IN) | payer MEDICARE ==
[~2020-05-19] VITALS: Ht 190.5 cm; Wt 107.0 kg
[~2020-05-19 12:21] MED LIST changes: +CALAN SR120 MG PO; -CALAN80 MG PO; +FLOMAX0.4 MG PO; +INVANZ1 GM IVPB
[2020-05-19 12:39] VITALS: BP 134/58
[2020-05-19 13:00] LABS: ABSOLUTE LYMPHOCYTES 0.4 thou/uL (0.8-5.3); ABSOLUTE NEUTROPHILS 7.8 thou/uL (1.6-8.1); BASOPHILS 0.3 %; HEMATOCRIT 36.9 % (42.0-52.0); HEMOGLOBIN 12.6 gm/dL (14.0-18.0); LYMPHOCYTES 4.4 %; MCH 28.4 pg (26.0-34.0); MCHC 34.1 g/dL (28.0-37.0); MCV 83.3 fL (80.0-100.0); MONOCYTES 10.4 %; NUCLEATED RBCS 0 /100WBC; PLATELET COUNT* 172 thou/uL (150-400); POLYS 84.9 %; RBC 4.43 mil/uL (4.50-6.00); WBC 9.2 thou/uL (4.0-11.0)
[2020-05-19 13:08] LABS: CALCIUM 8.5 mg/dL (8.5-10.1); CREATININE 1.4 mg/dL (0.6-1.3); POTASSIUM 3.3 mmol/L (3.5-5.1)
[2020-05-19 13:13] LABS: ALBUMIN 2.5 g/dL (3.4-5.0); TOTAL BILIRUBIN 2.8 mg/dL (<0.1-1.0); TOTAL PROTEIN 6.6 g/dL (6.4-8.2)
[2020-05-19 14:45] LABS: APTT 47.1 Seconds (25.0-31.3); INR 1.1
[2020-05-19 15:02] LABS: URINE BLOOD 3+ (Negative); URINE COLOR YELLOW; URINE GLUCOSE-RANDOM NEGATIVE (Negative); URINE KETONES 1+ (Negative); URINE PROTEIN 2+ (Negative); URINE SPECIFIC GRAVITY 1.025 (1.005-1.030); URINE UROBILINOGEN >= 8.0 E.U./dl (0.2-1.0)
[2020-05-19 15:04] LABS: ICTOTEST (BILI CONFIRMATORY) Negative (Negative); URINE BILIRUBIN 2+ (Negative); URINE CLARITY CLOUDY; URINE LEUKOCYTES-REFLEX 2+ (Negative); URINE NITRITE-REFLEX POSITIVE (Negative)
[2020-05-19 15:15] LABS: SQUAMOUS 0-3 Few /LPF (0-3)
[2020-05-19 15:16] LABS: BACTERIA-REFLEX >30 Many /HPF (None Seen); CASTS None Seen /LPF (None Seen); CRYSTALS None Seen /LPF (None Seen); URINE WBC-REFLEX >25 Many /HPF (0-5)
[2020-05-19] MEDS ORDERED: AVAPRO 150 MG150 MG PO (19:24)
[2020-05-19 19:40] VITALS: BP 124/49
[2020-05-19 20:20] VITALS: BP 120/66
[2020-05-19] MEDS ORDERED: VERAPAMIL HCL 880 M1 PO (20:34)
[2020-05-20] VITALS (7 sets, daily range): BP systolic 93–159; BP diastolic 44–73
[2020-05-20 05:24] LABS: HEMOGLOBIN 11.1 gm/dL (14.0-18.0); MCH 29.1 pg (26.0-34.0); MCHC 34.7 g/dL (28.0-37.0); MCV 83.9 fL (80.0-100.0); MPV 9.1 fl. (7.2-11.1); RBC 3.82 mil/uL (4.50-6.00); RDW-CV 15.3 % (10.5-14.5); WBC 8.3 thou/uL (4.0-11.0)
[2020-05-20 05:50] LABS: CALCIUM 7.3 mg/dL (8.5-10.1); CREATININE 1.2 mg/dL (0.6-1.3); POTASSIUM 3.8 mmol/L (3.5-5.1); TOTAL BILIRUBIN 1.2 mg/dL (<0.1-1.0); TOTAL PROTEIN 5.5 g/dL (6.4-8.2)
--- NOTE | 2020-05-20 10:30 | EKG ---
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 : 1945 Requested By: Brittney Monsalve Order Number: [id number] MD: Augusto Downing Measurements Intervals [place] Rate: 148 P: -32 NE: 104 QRS: -66 QRSD: 89 T: 143 QT: 239 QTc: 376 Interpretive Statements Supraventricular tachycardia Repolarization abnormality, prob rate related Baseline wander in lead(s) II,III,aVR,aVF,V1,V2,V3,V4 Compared to ECG 04/09/2019 09:35:03 Supraventricular tachycardia is noted with rate related ST segment changes Electronically Signed On 05-20-2020 10:30:14 CDT by Augusto Downing [email or web address] <ELECTRONICALLY SIGNED> By: Augusto Downing MD, [facility] 05/20/20 1030 13 181 Augusto Downing MD, [facility] /EPI
[2020-05-21] VITALS (7 sets, daily range): BP systolic 140–188; BP diastolic 63–88
[2020-05-22 04:00] VITALS: BP 150/73
[2020-05-22 04:27] LABS: HEMATOCRIT 33.9 % (42.0-52.0); HEMOGLOBIN 11.5 gm/dL (14.0-18.0); MCH 28.1 pg (26.0-34.0); MCHC 33.9 g/dL (28.0-37.0); MCV 82.8 fL (80.0-100.0); MPV 8.2 fl. (7.2-11.1); RBC 4.1 mil/uL (4.50-6.00); RDW-CV 15.2 % (10.5-14.5); WBC 4.8 thou/uL (4.0-11.0)
[2020-05-22 04:50] LABS: ALBUMIN 1.9 g/dL (3.4-5.0); CALCIUM 8.2 mg/dL (8.5-10.1); CREATININE 1.1 mg/dL (0.6-1.3); MAGNESIUM 1.9 mg/dL (1.8-2.4); POTASSIUM 3.2 mmol/L (3.5-5.1); TOTAL BILIRUBIN 0.8 mg/dL (<0.1-1.0); TOTAL PROTEIN 5.7 g/dL (6.4-8.2)
[2020-05-22 08:21] VITALS: BP 160/70
[2020-05-22 19:40] VITALS: BP 165/66
[2020-05-23 07:20] VITALS: BP 163/76
[2020-05-23 15:30] VITALS: BP 163/69
[2020-05-23 22:15] VITALS: BP 169/87
[2020-05-24 04:32] LABS: HEMATOCRIT 34.1 % (42.0-52.0); HEMOGLOBIN 11.6 gm/dL (14.0-18.0); MCH 27.8 pg (26.0-34.0); MCV 81.7 fL (80.0-100.0); MPV 8.5 fl. (7.2-11.1); RBC 4.17 mil/uL (4.50-6.00); WBC 6.6 thou/uL (4.0-11.0)
[2020-05-24 05:06] LABS: ALBUMIN 1.8 g/dL (3.4-5.0); CALCIUM 7.7 mg/dL (8.5-10.1); CREATININE 0.8 mg/dL (0.6-1.3); POTASSIUM 3.1 mmol/L (3.5-5.1); TOTAL BILIRUBIN 0.7 mg/dL (<0.1-1.0); TOTAL PROTEIN 5.7 g/dL (6.4-8.2)
[2020-05-24 07:10] VITALS: BP 148/60
[2020-05-24] MEDS ORDERED: BENZONATATE100 MG PO (09:50)
[2020-05-24] MEDS ORDERED: FLOMAX0.4 MG PO (09:50)
[2020-05-24] MEDS ORDERED: VERAPAMIL HCL 880 M1 PO (09:50)
[2020-05-24] MEDS ORDERED: BACTRIM DS TAB1 EACH PO (09:50)
[2020-05-24] MEDS ORDERED: CEFDINIR300 MG PO (09:51)
[2020-05-24 11:20] VITALS: BP 148/60
[2020-05-24 12:46] VITALS: BP 148/60
[2020-05-24 13:14] VITALS: BP 148/60
== END 2020-05-24 13:15 | disposition home health service (06) | DRG 871 ==
LOC: M.ERS 12:21 → M.2W 16:38 → M.ORTHSURG 16:38 → M.TBA-ER 16:38 → M.2W 20:07 → M.ORTHSURG 05-22 16:41
PROVIDERS: Internal Medicine; Physician Assistant; ADMIT Internal Medicine; ATTEND Internal Medicine
DX: A41.9 Sepsis, unspecified organism (principal); N17.0 Acute kidney failure with tubular necrosis; E44.0 Moderate protein-calorie malnutrition; I47.1 Supraventricular tachycardia; N10 Acute pyelonephritis; Z16.10 Resistance to unspecified beta lactam antibiotics; E78.00 Pure hypercholesterolemia, unspecified; I10 Essential (primary) hypertension; E87.6 Hypokalemia; F03.90 Unspecified dementia, unspecified severity, without behavioral disturbance, psychotic disturbance, mood disturbance, and anxiety; I25.10 Atherosclerotic heart disease of native coronary artery without angina pectoris; I95.9 Hypotension, unspecified; Z20.828 Contact with and (suspected) exposure to other viral communicable diseases; Z68.29 Body mass index [BMI] 29.0-29.9, adult; Z90.49 Acquired absence of other specified parts of digestive tract; Z95.5 Presence of coronary angioplasty implant and graft; Z79.899 Other long term (current) drug therapy

== ENCOUNTER 2020-08-19 13:58 | Inpatient (IN) | payer MEDICARE ==
[~2020-08-19] VITALS: Ht 190.5 cm; Wt 113.7 kg
[~2020-08-19 13:58] MED LIST changes: +AVAPRO 150 MG150 MG PO; +BACTRIM DS TAB1 EACH PO; +BENZONATATE100 MG PO; +CEFDINIR300 MG PO; +VERAPAMIL HCL 880 M1 PO
[2020-08-19 14:13] VITALS: BP 129/60
[2020-08-19 14:57] LABS: HEMATOCRIT 30.5 % (42.0-52.0); HEMOGLOBIN 10.2 gm/dL (14.0-18.0); MCHC 33.5 g/dL (28.0-37.0); MCV 80.4 fL (80.0-100.0); NUCLEATED RBCS 0 /100WBC; PLATELET COUNT* 324 thou/uL (150-400); RBC 3.79 mil/uL (4.50-6.00); RDW-CV 14.5 % (10.5-14.5); WBC 8.4 thou/uL (4.0-11.0)
[2020-08-19 15:06] LABS: CREATININE 3.7 mg/dL (0.6-1.3); POTASSIUM 3.3 mmol/L (3.5-5.1)
[2020-08-19 15:17] LABS: ALBUMIN 2.2 g/dL (3.4-5.0); TOTAL BILIRUBIN 0.7 mg/dL (<0.1-1.0); TOTAL PROTEIN 7.4 g/dL (6.4-8.2)
[2020-08-19 15:44] LABS: ABSOLUTE LYMPHOCYTES 0.6 thou/uL (0.8-5.3); ABSOLUTE MONOCYTES 0.3 thou/uL (0.0-1.2); ABSOLUTE NEUTROPHILS 7.5 thou/uL (1.6-8.1)
[2020-08-19 15:46] LABS: LARGE PLATELETS RARE; PLATELET ESTIMATE ADEQUATE; ROULEAUX OCCASIONAL
[2020-08-19 15:50] LABS: URINE BILIRUBIN NEGATIVE (Negative); URINE BLOOD 3+ (Negative); URINE CLARITY CLOUDY; URINE COLOR YELLOW; URINE GLUCOSE-RANDOM NEGATIVE (Negative); URINE KETONES NEGATIVE (Negative); URINE NITRITE-REFLEX NEGATIVE (Negative); URINE PROTEIN 2+ (Negative)
[2020-08-19 15:57] LABS: URINE LEUKOCYTES-REFLEX 2+ (Negative)
[2020-08-19 15:59] LABS: APTT 44.1 Seconds (25.0-31.3); INR 1.1; PROTIME 11.9 Seconds (9.20-11.50)
[2020-08-19 16:16] LABS: SQUAMOUS 0-3 Few /LPF (0-3)
[2020-08-19 16:17] LABS: BACTERIA-REFLEX >30 Many /HPF (None Seen); CRYSTALS None Seen /LPF (None Seen); URINE RBC >20 Many /HPF (0-2); URINE WBC-REFLEX >25 Many /HPF (0-5)
[2020-08-19 20:57] VITALS: BP 177/85
[2020-08-19 22:00] VITALS: BP 159/70
[2020-08-20] VITALS: BP 168/76
[2020-08-20 04:09] VITALS: BP 166/70
[2020-08-20 09:30] VITALS: BP 179/79
[2020-08-20 09:48] LABS: CALCIUM 7.6 mg/dL (8.5-10.1); CREATININE 3.7 mg/dL (0.6-1.3); POTASSIUM 3.5 mmol/L (3.5-5.1)
[2020-08-20 11:49] VITALS: BP 173/66
--- NOTE | 2020-08-20 12:44 | EKG ---
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 : 1945 Requested By: Idris Alvares Order Number: [id number] MD: Axel Sosa Measurements Intervals [place] Rate: 69 P: 62 NC: 162 QRS: -7 QRSD: 104 T: 39 QT: 417 QTc: 447 Interpretive Statements Sinus rhythm Baseline wander in lead(s) I,III,aVR,aVL,aVF,V1,V2,V3,V5,V6 Compared to ECG 05/19/2020 18:14:27 Supraventricular tachycardia no longer present Early repolarization no longer present Electronically Signed On 08-20-2020 12:44:37 MS ACCESS DATABASE DEVELOPER by Axel Sosa [email or web address] <ELECTRONICALLY SIGNED> By: Axel Sosa MD, FACC 08/20/20 1244 1431 1431 Axel Sosa MD, FACC /EPI
[2020-08-20 16:37] VITALS: BP 166/67
[2020-08-20 20:06] VITALS: BP 151/55
[2020-08-20 21:05] LABS: IgA 527 mg/dL (61-437); IgG 1112 mg/dL (603-1613); IgM 288 mg/dL (15-143)
[2020-08-21 00:13] VITALS: BP 139/64
[2020-08-21 04:56] LABS: ABSOLUTE LYMPHOCYTES 0.5 thou/uL (0.8-5.3); ABSOLUTE MONOCYTES 0.8 thou/uL (0.0-1.2); BASOPHILS 0.4 %; HEMATOCRIT 30.9 % (42.0-52.0); HEMOGLOBIN 10.2 gm/dL (14.0-18.0); LYMPHOCYTES 6.2 %; MCHC 33.2 g/dL (28.0-37.0); MCV 81.2 fL (80.0-100.0); MONOCYTES 11.1 %; MPV 8.2 fl. (7.2-11.1); NUCLEATED RBCS 0 /100WBC; PLATELET COUNT* 260 thou/uL (150-400); POLYS 82.3 %; RDW-CV 15.2 % (10.5-14.5); WBC 7.2 thou/uL (4.0-11.0)
[2020-08-21 05:15] VITALS: BP 140/67
[2020-08-21 05:19] LABS: ALBUMIN 1.8 g/dL (3.4-5.0); CALCIUM 8.1 mg/dL (8.5-10.1); CREATININE 3.9 mg/dL (0.6-1.3); POTASSIUM 3.3 mmol/L (3.5-5.1); TOTAL BILIRUBIN 0.6 mg/dL (<0.1-1.0); TOTAL PROTEIN 6.5 g/dL (6.4-8.2)
[2020-08-21 08:00] VITALS: BP 164/66
[2020-08-21 12:00] VITALS: BP 148/56
[2020-08-21 16:34] VITALS: BP 161/66
--- NOTE | 2020-08-21 17:18 | CON ---
[address] [address] CONSULTATION Name: VAMSI RIVAS Room: [address] IN .R.#: [id number] Admission: 08/19/20 Attend Phys: Osei Jacome Discharge: Date of : 41 Report #: [id number] THIS REPORT FOR: //name// cc: Damien Freire MD, Anthony MD ~ DATE OF SERVICE: 08/21/2020 NEPHROLOGY CONSULTATION CONSULTING PHYSICIAN: Lucian Arreola DO REASON FOR NEPHROLOGY CONSULTATION: Acute kidney injury. REASON FOR ADMISSION: Generalized fatigue and weight loss, unintentional 12-pound weight loss in a few weeks' period of time. HISTORY OF PRESENT ILLNESS: This is a 75-year-old male, who came in with weakness, fatigue, and not being able to eat much and loss of 12 pounds in the last 3 weeks or so according to the patient's . The patient is very weak even right now. His baseline creatinine is around 0.8 in May of this year and he comes in with a creatinine of 3.7. He was also usually found to have a possible mass on the left side of his chest, but the CT chest did not show any mass and possible pneumonia, for which pulmonary is following him. Hematology also has been consulted for the weight loss and for this possibility of mass. His home medications include ibuprofen and he says he did not take any this week, but was taking it last week. He is overall not a good historian. His home medications also include Bactrim. He was at this facility in April treated for ESBL E. coli, pyelonephritis; was discharged on Bactrim at that time for [address] abdomen did not show any evidence of hydronephrosis. He refused a Vazquez catheter and output reported has been around 900 mL overnight. He is also being treated for UTI and the patient was unable to tell me if he was having symptoms or not. ALLERGIES: No known drug allergies. REVIEW OF SYSTEMS: As mentioned in history of present illness, otherwise 10-point review of systems done, negative. PAST MEDICAL AND SURGICAL HISTORY: Includes dyslipidemia, hypertension, seizures, dementia, cholecystectomy, ankle surgery, right foot fracture, cardiac stents, recent UTI, ESBL E. coli, pyelonephritis in April of this year, right total knee arthroplasty in 2019. HOME MEDICATIONS: Include Keppra, Crestor, Aricept, Protonix, Motrin, Bactrim, [place] [address] CONSULTATION Name: VAMSI RIVAS Room: [address]#: [id number] Admission: 08/19/20 Attend Phys: Osei Jacome Discharge: Date of : 41 Report #: [id number] tamsulosin, benzonatate, verapamil. FAMILY HISTORY: Reviewed and noncontributory. SOCIAL HISTORY: Lives at home with his . Does not smoke or drink alcohol or use illicit drugs. PHYSICAL EXAMINATION: VITAL SIGNS: Blood pressure 140/67, pulse ox is 96% on room air, temperature 37.2, pulse rate is 81, respiratory rate is 18. GENERAL: He is awake and alert, not very oriented to situation, but he is oriented to time, place and person, very slow speech. HEAD AND EYES: Atraumatic and normocephalic. Conjunctivae normal. EARS, NOSE, AND THROAT: Normal ears and nose. Mucous membranes are moist. NECK: There is no JVD. CHEST: Shows bilaterally diminished breath sounds and no crackles heard. CARDIOVASCULAR: S1, S2 normal. No murmurs. ABDOMEN: Soft, nondistended, nontender. Bowel sounds are present. EXTREMITIES: Lower extremities: There is no lower extremity edema. NEUROLOGICAL FUNCTION: Grossly intact. PSYCHIATRIC: Unable to evaluate. LABORATORY DATA: WBC 7.2, hemoglobin was 10.2. Sodium was 138, potassium was 3.3, creatinine was 3.9, which is up from 3.7. Other labs are reviewed. IMAGING: Renal ultrasound, chest, abdomen, pelvic CT, head CT and chest x-ray were reviewed. ASSESSMENT: 1. Acute kidney injury in the setting of ibuprofen and Bactrim use and volume depletion, poor p.o. intake. Baseline creatinine is 0.8 in May of this year and he presents with a creatinine of 3.7. UA reviewed, did have evidence of possible urinary tract infection with more than 20 rbc's per high-power field. Renal imaging: The CT scan did not show any hydronephrosis. 2. Hypokalemia because of poor oral intake. 3. History of benign prostatic hypertrophy. Bladder scan needed to be checked, but has not been checked yet. 4. Possible urinary tract infection, being treated for that as per primary team. 5. Possible pneumonia on the left side versus mass. Pulmonary and Hematology following him for that. 6. Recent extended spectrum beta-lactamase Escherichia coli, pyelonephritis in [place] [address] CONSULTATION Name: VAMSI RIVAS Room: [address] IN .R.#: [id number] Admission: 08/19/20 Attend Phys: Osei Jacome Discharge: Date of : 41 Report #: [id number] PLAN: 1. I will be sending some serological workup for his hematuria, agree with checking serum immunofixation, serum free light chain ratio as well. 2. Continue IV fluids for now and I have replaced his potassium. 3. We will check a urine protein to creatinine ratio as well. 4. Check a bladder scan to make sure he is not retaining any urine. 5. Continue to avoid all nephrotoxic agents. 6. Acute kidney injury, so far looks like because of volume depletion and Bactrim and NSAID use, but we will continue to monitor. Thank you for this consultation. Strict I's and O's on him. Discussed with the patient's nurse in detail. <ELECTRONICALLY SIGNED> By: Yolande Rangel MD 08/21/20 1718 0742 [id number] Rangel MD /sonia
[2020-08-22] VITALS: BP 153/64
[2020-08-22 04:00] VITALS: BP 174/73
[2020-08-22 05:14] LABS: ABSOLUTE LYMPHOCYTES 0.5 thou/uL (0.8-5.3); ABSOLUTE MONOCYTES 0.7 thou/uL (0.0-1.2); ABSOLUTE NEUTROPHILS 5.8 thou/uL (1.6-8.1); BASOPHILS 0.5 %; HEMATOCRIT 28.5 % (42.0-52.0); HEMOGLOBIN 9.5 gm/dL (14.0-18.0); LYMPHOCYTES 7.3 %; MCHC 33.4 g/dL (28.0-37.0); MCV 80.7 fL (80.0-100.0); MONOCYTES 10.5 %; NUCLEATED RBCS 0 /100WBC; PLATELET COUNT* 270 thou/uL (150-400); POLYS 81.7 %; RBC 3.53 mil/uL (4.50-6.00); RDW-CV 15.1 % (10.5-14.5); WBC 7.1 thou/uL (4.0-11.0)
[2020-08-22 05:16] LABS: CALCIUM 7.9 mg/dL (8.5-10.1); CREATININE 4.3 mg/dL (0.6-1.3); MAGNESIUM 1.8 mg/dL (1.8-2.4); POTASSIUM 3.8 mmol/L (3.5-5.1)
[2020-08-22 07:30] VITALS: BP 168/87
--- NOTE | 2020-08-22 07:44 | CON ---
[address] [address] CONSULTATION Name: VAMSI RIVAS Room: [address] IN .R.#: [id number] Admission: 08/19/20 Attend Phys: Osei Jacome Discharge: Date of : 41 Report #: [id number] THIS REPORT FOR: //name// cc: Damien Freire MD, Anthony MD ~ DATE OF SERVICE: 08/20/2020 CONSULT REQUESTED BY: Lucian Arreola DO. INDICATION FOR CONSULTATION: Pulmonary infiltrates/suspicion of a lung mass. HISTORY OF PRESENT ILLNESS: A 75-year-old gentleman with past medical history as mentioned below. This does include a history of ESBL E. coli in his urine. The patient was admitted previously to this hospital in April and was treated with broad-spectrum antibiotics and was discharged on Bactrim and Cefdinir, his baseline creatinine is normal. The patient is now admitted with generalized fatigue and weakness, he has had some shortness of breath and some cough with clear sputum. He was found to be in acute renal failure with a creatinine of 3.7 upon admission. The patient has recently had chest x-rays performed as an outpatient. I do not have access to those. Based on this chest x-ray the patient was advised ultrasound thoracentesis; however, only fairly small pleural effusions are seen on the imaging performed now. The patient has not had thoracentesis. There is no swelling of lower extremities or calf pain. The patient's review of systems is negative for 10 points except as mentioned above. PAST MEDICAL HISTORY: ESBL E. coli, recurrent urinary tract infection, hypertension, hyperlipidemia, seizure, dementia, cholecystectomy, ankle surgery, right foot fracture, right TKA 2019. CURRENT MEDICATIONS: List in [employer] reviewed. HOME MEDICATIONS: List also in [employer] reviewed. Also, see discussion above. Recent use of Cefdinir and Bactrim as an outpatient. ALLERGIES: No known drug allergies. FAMILY HISTORY: There is no pertinent family history. SOCIAL HISTORY: Lifetime nonsmoker. No known history of heavy alcohol use or drug use. PHYSICAL EXAMINATION: [place] [address] CONSULTATION Name: VAMSI RIVAS Room: [address]#: [id number] Admission: 08/19/20 Attend Phys: Osei Jacome Discharge: Date of : 41 Report #: [id number] GENERAL: He is alert, awake and oriented. VITAL SIGNS: Has a pulse of 73 and a blood pressure of 166/67. He is saturating 97%. He has not been on supplemental oxygen. Pulse is 73, respiratory rate 16, afebrile with a temperature of 36.2. HEENT: Head is normocephalic and atraumatic. Pupils are equal and reactive. There is no throat erythema. NECK: Does not show raised JVP, asymmetry, mass or lymph nodes. CHEST: Symmetrical expansion on inspection and palpation. On auscultation, chest is clear. HEART: Regular. There is no murmur. ABDOMEN: Soft and nontender. EXTREMITIES: Lower extremities show no edema, no calf tenderness. SKIN: Dry and intact. NEUROLOGICAL: Moves all extremities bilaterally equally and spontaneously. There is no focal deficit identified. LABORATORY DATA: The patient's CT chest shows mild fluid overload. There is also a patchy infiltrate in the right middle lobe, see around image 76. The [facility] and these are reviewed. ASSESSMENT AND PLAN: 1. Acute renal failure, mild fluid overload. The patient's CT chest, primarily shows mild fluid overload; however, he is in acute renal failure, and he respiratory bergeron is tolerating this well, so I in fact agree with continuing with IV fluids and keeping him well hydrated as he is tolerating this well and he is in acute renal failure. The etiology of acute renal failure, remains to be fully defined. He has received Bactrim recently. I would like to get a 2D echo. 2. Pulmonary infiltrates, on my review, there is a small patchy infiltrate in the right middle lobe. I do not have a CT available for comparison from April, so it is not possible to state with certainty as to whether there is resolving pneumonia in this region, or as to whether the patient has a new infiltrate. I would like to give him some atypical coverage. He is already on ceftriaxone and therefore, I added azithromycin. If he improves, then from a respiratory point of in fact down the line discontinue ceftriaxone. His urine culture is pending. Note that he has had ESBL E. coli in the urine in the past, which have been tetracycline sensitive. If this is seen again, and there is a desire to cover this, and discontinuing Zithromax and switching this over to doxycycline later can be a consideration. 3. Rule out lung mass. The opacity in the right middle lobe, which is fairly small in size is likely an infiltrate and not a mass. See further discussion as above. I would still want to do a CT chest without contrast after 3 months to verify, or follow up on this finding. 4. History of recurrent urinary tract infections secondary to ESBL Escherichia [facility] [address] [place] [address] CONSULTATION Name: VAMSI RIVAS Room: [address]#: [id number] Admission: 08/19/20 Attend Phys: Osei Jacome Discharge: Date of : 41 Report #: [id number] coli. 5. Deep vein thrombosis prophylaxis. Recommend subcutaneous heparin, if no contraindications. 6. History of verapamil use. The patient is on verapamil. The reason why he is on verapamil is not known to me at this time. Thanks for this consultation. <ELECTRONICALLY SIGNED> By: Gregg Holm MD 08/22/20 0744 1738 [id number] Holm MD /nt
[2020-08-22 11:30] VITALS: BP 135/63
[2020-08-22 14:06] LABS: GLOBULIN TOTAL 3.7 g/dL (2.2-3.9); M-SPIKE Not Observed g/dL (Not Observed)
[2020-08-22 14:06] LABS: COMPLEMENT-C4 24 mg/dL (12-38)
--- NOTE | 2020-08-22 15:03 | 2DMMODE ---
[place] [address] 2 D/M-MODE ECHOCARDIOGRAM Name: VAMSI RIVAS Room: [address] IN [facility]#: [id number] Admission: 08/19/20 Attend Phys: Lucian Arreola Discharge: Date of : 41 Date of Service: 08/22/20 1502 Report #: [id number] THIS REPORT FOR: cc: Damien Freire MD, Anthony MD Blick,Pro Benites MD [facility] ~ APPROVED REPORT Study performed: 08/22/2020 09:18:29 EXAM: Comprehensive 2D, Doppler, and color-flow Echocardiogram Patient Location: In-Patient Room #: [facility] Status: routine BSA: 2.29 HR: 102 bpm BP: 174/73 mmHg Rhythm: NSR Other Information Study Quality: Good Indications Dyspnea 2D Dimensions IVSd: 9.73 (7-11mm) LVOT Diam: 21.84 (18-24mm) LVDd: 43.85 mm PWd: 9.32 (7-11mm) Ascending Ao: 30.95 (22-36mm) LVDs: 26.13 (25-40mm) Aortic Root: 36.49 mm Volumes Left Atrial Volume (Systole) LA ESV Index: 29.70 mL/m2 Aortic Valve AoV Peak Eric.: 1.67 m/s AO Peak Gr.: 11.13 mmHg LVOT Max P.63 mmHg AO Mean Gr.: 5.97 mmHg LVOT Mean P.37 mmHg LVOT Max V: 1.38 m/s AO V2 VTI: 29.02 cm LVOT Mean V: 0.82 m/s EDWARD (VTI): 3.33 cm2 LVOT V1 VTI: 25.76 [place] [address] 2 D/M-MODE ECHOCARDIOGRAM Name: VAMSI RIVAS Room: [address] IN ..#: [id number] Admission: 08/19/20 Attend Phys: Lucian Arreola Discharge: Date of : 41 Date of Service: 08/22/20 1502 Report #: [id number] Mitral Valve E/A Ratio: 0.80 MV E Max Eric.: 1.06 m/s TDI E/Lateral E': 13.25 Lateral E' Eric.: 0.08 m/s Pulmonary Valve PV Peak Eric.: 1.00 m/s PV Peak Gr.: 3.97 mmHg Left Ventricle The left ventricle is normal size. There is normal LV segmental wall motion. There is normal left ventricular wall thickness. Left ventricular systolic function is normal. The left ventricular ejection fraction is within the normal range. LVEF is 60-65%. Grade I - abnormal relaxation pattern. Right Ventricle Right ventricle is dilated. The right ventricular systolic function is normal. Atria Left atrium is mildly dilated. Right atrium is dilated. Aortic Valve Mild aortic valve sclerosis. No aortic regurgitation is present. There is no aortic valvular stenosis. Mitral Valve There is mitral annular calcification. The mitral valve is normal in structure. Trace mitral regurgitation. No evidence of mitral valve stenosis. Tricuspid Valve The tricuspid valve is normal in structure. Unable to assess PA pressure. Trace tricuspid regurgitation. Pulmonic Valve The pulmonary valve is normal in structure. There is no pulmonic valvular regurgitation. Great Vessels The aortic root is normal in size. IVC is normal in size and collapses >50% [place] [address] 2 D/M-MODE ECHOCARDIOGRAM Name: VAMSI RIVAS Room: [address] IN [facility].#: [id number] Admission: 08/19/20 Attend Phys: Lucian Arreola Discharge: Date of : 41 Date of Service: 08/22/201501 Report #: [id number] Pericardium There is no pericardial effusion. <Conclusion> LVEF is 60-65%. Left atrium is mildly dilated. Mild aortic valve sclerosis. <ELECTRONICALLY SIGNED> By: Pro Ruano MD, [facility] 08/22/20 150 01 01 Pro Ruano MD, FACC /INF
[2020-08-22 16:06] LABS: KAPPA FREE LIGHT CHAINS 209.6 mg/L (3.3-19.4); LAMBDA FREE LIGHT CHAINS 174.3 mg/L (5.7-26.3)
[2020-08-22 16:40] VITALS: BP 156/69
[2020-08-22 17:06] LABS: HEPATITIS B SURFACE AG Negative (Negative)
[2020-08-23] VITALS (7 sets, daily range): BP systolic 159–184; BP diastolic 63–83
[2020-08-23 04:16] LABS: ABSOLUTE LYMPHOCYTES 0.4 thou/uL (0.8-5.3); ABSOLUTE MONOCYTES 0.7 thou/uL (0.0-1.2); ABSOLUTE NEUTROPHILS 5.9 thou/uL (1.6-8.1); BASOPHILS 0.7 %; HEMATOCRIT 27.2 % (42.0-52.0); HEMOGLOBIN 9.2 gm/dL (14.0-18.0); LYMPHOCYTES 6.1 %; MCHC 33.7 g/dL (28.0-37.0); MONOCYTES 10.4 %; MPV 8.3 fl. (7.2-11.1); NUCLEATED RBCS 0 /100WBC; PLATELET COUNT* 272 thou/uL (150-400); POLYS 82.8 %; RDW-CV 14.7 % (10.5-14.5); WBC 7.1 thou/uL (4.0-11.0)
[2020-08-23 04:43] LABS: CALCIUM 7.8 mg/dL (8.5-10.1); CREATININE 4.6 mg/dL (0.6-1.3); PHOSPHORUS* 3.9 mg/dL (2.5-4.9); POTASSIUM 3.3 mmol/L (3.5-5.1)
[2020-08-23 04:47] LABS: ALBUMIN 1.7 g/dL (3.4-5.0); CALCIUM 7.8 mg/dL (8.5-10.1); CREATININE 4.6 mg/dL (0.6-1.3); MAGNESIUM 1.7 mg/dL (1.8-2.4); POTASSIUM 3.3 mmol/L (3.5-5.1); TOTAL BILIRUBIN 0.6 mg/dL (<0.1-1.0); TOTAL PROTEIN 6.3 g/dL (6.4-8.2)
[2020-08-23 12:48] LABS: CALCIUM 8.2 mg/dL (8.5-10.1); CREATININE 4.8 mg/dL (0.6-1.3); POTASSIUM 3.4 mmol/L (3.5-5.1)
[2020-08-23 12:51] LABS: MAGNESIUM 1.7 mg/dL (1.8-2.4)
[2020-08-23 13:13] LABS: ANTI-DNA SCREEN 6 IU/mL (0-9); ANTI-RNP <0.2 AI (0.0-0.9)
--- NOTE | 2020-08-23 14:21 | CON ---
[address] [address] CONSULTATION Name: VAMSI RIVAS Room: [address] IN .R.#: [id number] Admission: 08/19/20 Attend Phys: Osei Jacome Discharge: Date of : 41 Report #: [id number] THIS REPORT FOR: //name// cc: Damien Freire MD, Anthony MD ~ DATE OF SERVICE: 08/21/2020 HISTORY OF PRESENT ILLNESS: This is a pleasant 75-year-old male who was admitted to the hospital with generalized fatigue and weakness. The GI service has been consulted for loss of appetite and weight loss. The patient has a prior history of ESBL E. coli in his urine and presented with acute renal failure with creatinine of 3.9. His baseline creatinine is about 1. The patient denies any abdominal pain. He does report significant nausea and lack of appetite. The patient reports he is unable to swallow water for a prolonged period of time because of his prolonged nausea. He denies any fevers or chills, reports about 14-pound weight loss over the last 2 weeks. He also denies any dysphagia or odynophagia. PAST MEDICAL HISTORY: Hypertension, coronary artery disease, ESBL E. Coli, bacteremia. PAST SURGICAL HISTORY: The patient has a history of coronary stent placement, ankle surgery, knee replacement. He has not had any abdominal surgeries. The patient had EGD and colonoscopy performed in the past by our service as well as [facility]. FAMILY HISTORY: There is no family history of colorectal cancer or Myles related neoplasia. SOCIAL HISTORY: The patient denies smoking, alcohol or recreational drug use. PHYSICAL EXAMINATION: VITAL SIGNS: Temperature 37.2, pulse rate 81, respirations 18, blood pressure 140/47, pulse ox 96%. GENERAL: The patient is alert, awake, oriented x 3. HEENT: Pupils are equal, round, reactive to light and accommodation. Mucous membranes are moist. There is no congestion. LUNGS: Clear to auscultation bilaterally. CARDIOVASCULAR: Rate and rhythm regular, S1, S2 present. ABDOMEN: Soft. There is no distention, guarding or rigidity. EXTREMITIES: Warm, well perfused. LABORATORY DATA: Hemoglobin 10.2, hematocrit 30.9, platelet count 260, WBC count 7.2. INR 1.1. Sodium 138, potassium 3.3, chloride 105, bicarbonate 24, [place] [address] CONSULTATION Name: VAMSI RIVAS Room: [address]#: [id number] Admission: 08/19/20 Attend Phys: Osei Jacome Discharge: Date of : 41 Report #: [id number] BUN 35, creatinine 3.9 and albumin 1.8. IMAGING: CT abdomen and pelvis was unremarkable. ASSESSMENT AND PLAN: Pleasant 75-year-old male with history of new onset renal failure, prior history of E. coli bacteremia, who is presenting with nausea, vomiting and loss of appetite. I offered EGD as well as small bowel follow through, but the patient and who is at bedside refused. They appeared to be convinced that this is secondary to a systemic problem and not a GI particular issue. I would recommend putting him on Reglan to improve his motility as well as Remeron to improve appetite. The patient agrees, we can start with a small bowel follow through and upper GI series. This will give us a rough estimate of the anatomy as well as motility. Further recommendations can be based on these tests. <ELECTRONICALLY SIGNED> By: Pritesh Molina MD 08/23/20 1421 1056 [id number] Molina MD /nt
[2020-08-23 16:24] LABS: SMEAR FOR EOSINOPHILS No Eosinophils Seen
[2020-08-24] VITALS (13 sets, daily range): BP systolic 142–176; BP diastolic 63–84
[2020-08-24 04:48] LABS: ABSOLUTE LYMPHOCYTES 0.5 thou/uL (0.8-5.3); ABSOLUTE MONOCYTES 0.6 thou/uL (0.0-1.2); ABSOLUTE NEUTROPHILS 5.4 thou/uL (1.6-8.1); BASOPHILS 0.6 %; HEMATOCRIT 26.8 % (42.0-52.0); HEMOGLOBIN 9.1 gm/dL (14.0-18.0); LYMPHOCYTES 7.8 %; MCH 26.8 pg (26.0-34.0); MCHC 33.8 g/dL (28.0-37.0); MCV 79.3 fL (80.0-100.0); MONOCYTES 9.2 %; MPV 7.9 fl. (7.2-11.1); NUCLEATED RBCS 0 /100WBC; PLATELET COUNT* 255 thou/uL (150-400); POLYS 82.4 %; RBC 3.38 mil/uL (4.50-6.00); RDW-CV 14.7 % (10.5-14.5); WBC 6.5 thou/uL (4.0-11.0)
[2020-08-24 04:57] LABS: % SATURATION 27 % (20-39); IRON 31 ug/dL (50-175)
[2020-08-24 05:04] LABS: CALCIUM 8.3 mg/dL (8.5-10.1); CREATININE 5.1 mg/dL (0.6-1.3); POTASSIUM 3.5 mmol/L (3.5-5.1)
[2020-08-24 09:07] LABS: GLOMERULR BASEM MEMBRN AB 3 units (0-20)
[2020-08-25] VITALS: BP 169/56
[2020-08-25 04:00] VITALS: BP 143/58
[2020-08-25 04:56] LABS: ABSOLUTE LYMPHOCYTES 0.6 thou/uL (0.8-5.3); ABSOLUTE MONOCYTES 0.6 thou/uL (0.0-1.2); ABSOLUTE NEUTROPHILS 4.6 thou/uL (1.6-8.1); BASOPHILS 0.6 %; HEMATOCRIT 22.8 % (42.0-52.0); HEMOGLOBIN 7.6 gm/dL (14.0-18.0); LYMPHOCYTES 10.8 %; MCHC 33.5 g/dL (28.0-37.0); MCV 80.6 fL (80.0-100.0); MPV 7.6 fl. (7.2-11.1); NUCLEATED RBCS 0 /100WBC; PLATELET COUNT* 204 thou/uL (150-400); POLYS 78.6 %; RBC 2.82 mil/uL (4.50-6.00); RDW-CV 14.9 % (10.5-14.5); WBC 5.8 thou/uL (4.0-11.0)
[2020-08-25 05:02] LABS: CALCIUM 7.5 mg/dL (8.5-10.1); CREATININE 4.7 mg/dL (0.6-1.3); POTASSIUM 3.1 mmol/L (3.5-5.1)
[2020-08-25 05:22] LABS: MAGNESIUM 1.7 mg/dL (1.8-2.4); PHOSPHORUS* 3.3 mg/dL (2.5-4.9)
[2020-08-25 08:00] VITALS: BP 182/67
[2020-08-25 16:00] VITALS: BP 164/60
[2020-08-25 20:30] VITALS: BP 174/77
[2020-08-25 21:06] LABS: ANA INTERPRETATION Positive (())
[2020-08-26] VITALS: BP 164/84
[2020-08-26 04:00] VITALS: BP 166/84
[2020-08-26 04:36] LABS: APTT 41.8 Seconds (25.0-31.3); INR 1.1; PROTIME 12.1 Seconds (9.20-11.50)
[2020-08-26 04:39] LABS: CALCIUM 8.2 mg/dL (8.5-10.1); CREATININE 3.8 mg/dL (0.6-1.3); PHOSPHORUS* 2.9 mg/dL (2.5-4.9); POTASSIUM 4.6 mmol/L (3.5-5.1)
[2020-08-26 08:00] VITALS: BP 150/64
[2020-08-26 16:00] VITALS: BP 136/67
[2020-08-27 04:00] VITALS: BP 150/74
[2020-08-27 04:22] LABS: HEMATOCRIT 23.7 % (42.0-52.0); HEMOGLOBIN 7.9 gm/dL (14.0-18.0); MCH 27.1 pg (26.0-34.0); MCHC 33.3 g/dL (28.0-37.0); MCV 81.5 fL (80.0-100.0); MPV 8.7 fl. (7.2-11.1); NUCLEATED RBCS 0 /100WBC; PLATELET COUNT* 132 thou/uL (150-400); RBC 2.91 mil/uL (4.50-6.00); WBC 16.8 thou/uL (4.0-11.0)
[2020-08-27 05:16] LABS: ALBUMIN 2.8 g/dL (3.4-5.0); CREATININE 3.1 mg/dL (0.6-1.3); MAGNESIUM 1.7 mg/dL (1.8-2.4); POTASSIUM 3.9 mmol/L (3.5-5.1); TOTAL PROTEIN 6.5 g/dL (6.4-8.2)
[2020-08-27 06:46] LABS: ABSOLUTE LYMPHOCYTES 0.8 thou/uL (0.8-5.3); ABSOLUTE MONOCYTES 0.2 thou/uL (0.0-1.2); ABSOLUTE NEUTROPHILS 15.8 thou/uL (1.6-8.1); PLATELET ESTIMATE DECREASED
[2020-08-27 06:47] LABS: ANISOCYTOSIS 1+; OVALOCYTES Occasional; POIKILOCYTOSIS 1+
[2020-08-27 08:00] VITALS: BP 137/44
[2020-08-27] MEDS ORDERED: VENOFER20 MG/ML IV (12:32)
[2020-08-27] MEDS ORDERED: MEROPENEM500 MG IV (12:32)
[2020-08-27] MEDS ORDERED: MIRTAZAPINE15 M2 PO (12:32)
[2020-08-27] MEDS ORDERED: HYDROCODON-ACE1 EAC7 PO (12:32)
[2020-08-27] MEDS ORDERED: SOLU-MEDRO1000 MG/VI IV (12:32)
[2020-08-27] MEDS ORDERED: COREG6.25 MG PO (12:32)
[2020-08-27] MEDS ORDERED: MUCINEX600 MG PO (12:32)
[2020-08-27] MEDS ORDERED: REGLAN 10 MG TA10 MG PO (12:32)
[2020-08-27] MEDS ORDERED: TRAMADOL 50 MG50 MG PO (12:32)
[2020-08-27 16:33] VITALS: BP 118/49
== END 2020-08-27 16:30 | disposition short-term general hospital (02) | DRG 177 ==
LOC: M.ERS 13:58 → M.TBA-ER 16:40 → M.2W 16:40
PROVIDERS: Family Medicine; Internal Medicine; Internal Medicine Critical Care Medicine; Internal Medicine Hematology & Oncology; Internal Medicine Nephrology; ADMIT Internal Medicine; ATTEND Internal Medicine
PROC: 0TB13ZX Excision of Left Kidney, Percutaneous Approach, Diagnostic (ICD-10-PCS; principal; 2020-08-24)
PROC: B548ZZA Ultrasonography of Superior Vena Cava, Guidance (ICD-10-PCS; principal; 2020-08-24)
PROC: 6A550Z3 Pheresis of Plasma, Single (ICD-10-PCS; principal; 2020-08-24)
PROC: 02HV33Z Insertion of Infusion Device into Superior Vena Cava, Percutaneous Approach (ICD-10-PCS; principal; 2020-08-24)
PROC: 5A1D70Z Performance of Urinary Filtration, Intermittent, Less than 6 Hours Per Day (ICD-10-PCS; principal; 2020-08-24)
PROC: 5A1D70Z Performance of Urinary Filtration, Intermittent, Less than 6 Hours Per Day (ICD-10-PCS; 2020-08-25)
PROC: 5A1D70Z Performance of Urinary Filtration, Intermittent, Less than 6 Hours Per Day (ICD-10-PCS; 2020-08-26)
PROC: 5A1D70Z Performance of Urinary Filtration, Intermittent, Less than 6 Hours Per Day (ICD-10-PCS; 2020-08-27)
DX: J15.6 Pneumonia due to other Gram-negative bacteria (principal); N17.0 Acute kidney failure with tubular necrosis; E43 Unspecified severe protein-calorie malnutrition; N39.0 Urinary tract infection, site not specified; Z16.12 Extended spectrum beta lactamase (ESBL) resistance; R04.2 Hemoptysis; I25.10 Atherosclerotic heart disease of native coronary artery without angina pectoris; D72.829 Elevated white blood cell count, unspecified; T38.0X5A Adverse effect of glucocorticoids and synthetic analogues, initial encounter; E78.5 Hyperlipidemia, unspecified; F03.90 Unspecified dementia, unspecified severity, without behavioral disturbance, psychotic disturbance, mood disturbance, and anxiety; I77.6 Arteritis, unspecified; N05.7 Unspecified nephritic syndrome with diffuse crescentic glomerulonephritis; B95.2 Enterococcus as the cause of diseases classified elsewhere; E78.00 Pure hypercholesterolemia, unspecified; E87.6 Hypokalemia; N40.0 Benign prostatic hyperplasia without lower urinary tract symptoms; I10 Essential (primary) hypertension; R63.4 Abnormal weight loss; Z20.828 Contact with and (suspected) exposure to other viral communicable diseases; Z79.899 Other long term (current) drug therapy; Y92.89 Other specified places as the place of occurrence of the external cause; Z90.49 Acquired absence of other specified parts of digestive tract; Z95.5 Presence of coronary angioplasty implant and graft; Z68.31 Body mass index [BMI] 31.0-31.9, adult

== ENCOUNTER → 2020-10-21 | Outpatient (CLI) | payer MEDICARE ==
[~2020-10-21] MED LIST changes: +COREG6.25 MG PO; +HYDROCODON-ACE1 EAC7 PO; +MEROPENEM500 MG IV; +MIRTAZAPINE15 M2 PO; +MUCINEX600 MG PO; +REGLAN 10 MG TA10 MG PO; +SOLU-MEDRO1000 MG/VI IV; +VENOFER20 MG/ML IV
[2020-10-21 17:26] LABS: CALCIUM 9.4 mg/dL (8.5-10.1); POTASSIUM 4.8 mmol/L (3.5-5.1)
== END ==
LOC: M.LAB 17:02
PROVIDERS: ATTEND Internal Medicine Nephrology
DX: N17.9 Acute kidney failure, unspecified (principal)

== ENCOUNTER → 2020-10-28 | Outpatient (CLI) | payer MEDICARE ==
[2020-10-28 10:27] LABS: CALCIUM 8.9 mg/dL (8.5-10.1); CREATININE 2.5 mg/dL (0.6-1.3); POTASSIUM 3.6 mmol/L (3.5-5.1)
== END ==
LOC: M.LAB 09:51
PROVIDERS: ATTEND Internal Medicine Nephrology
DX: N17.9 Acute kidney failure, unspecified (principal)